=== PATIENT | female | born 1935 | race Caucasian/White ===

== ENCOUNTER 2017-08-23 22:38 | Inpatient (IN) | payer OTHER ==
[~2017-08-23] VITALS: Ht 157.5 cm; Wt 50.7 kg
[2017-08-23] MEDS ORDERED: SODIUM CHLORIDE 0.9% 1000ML 1,000 ML IV STA (22:43)
[2017-08-23] MEDS ORDERED: SODIUM BICARB 8.4% INJ 50 MEQ/50 ML SYR IV STA (22:44)
[2017-08-23] MEDS ORDERED: SODIUM BICARB 8.4% INJ 50 MEQ/50 ML SYR IV ONE (22:53)
--- NOTE | 2017-08-23 22:55 | EMERGENCY ROOM VISIT NOTE ---
History Report prepared by Rob: Remington Castro Under the Supervision of: Dr. Gail Kendrick D.O. 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 This history is limited secondary to the patient's intubation and arrest. Per EMS, the patient was at home with her daughter when she became unresponsive. As they pulled up, she went into cardiac arrest. They brought her out of the house and initiated CPR. She was asystolic, and she was given 2 rounds of Epi. She was intubated with 7.0 tube, and then her pulses came back. En route, she was PEA. They gave her 1 round of CPR and 1 of Epi and got her pulses back. The patient's daughter was unable to give EMS any more information about the patient's medical history, medications, or allergies. No family present at this time. No additional information available in EMR. 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 Review of Systems See HPI for pertinent positives & negatives. A total of 10 systems reviewed and were otherwise negative. Past Medical & Surgical Medical Problems: (1) Asystole (2) Elevated troponin (3) Hyperglycemia (4) Lactic acidosis (5) Metabolic acidosis (6) PEA (Pulseless electrical activity) Unable to obtain secondary to the patient's cardiac arrest Family History Omitted secondary to the patient's age. Social History Housing Status: lives with family Occupation Status: retired Unable to complete secondary to the patient's cardiac arrest. Current/Historical Medications Scheduled Fluoxetine (Prozac), 20 MG PO QAM Quetiapine Fumarate (Seroquel), 50 MG PO HS Simvastatin (Zocor), 10 MG PO QPM Trazodone Hcl (Trazodone), 50 MG PO HS Scheduled PRN Ibuprofen (Motrin), 600 MG PO Q8 PRN for arthritic pain Allergies Coded Allergies: Ofloxacin (Verified Allergy, Unknown, RASH, 08/23/17) Uncoded Allergies: ERYTHROMYCIN BASE (Allergy, Unknown, unknown, 08/23/17) Physical Exam Vital Signs Date Time Temp Pulse Resp B/P (MAP) Pulse Ox O2 Delivery O2 Flow Rate FiO2 08/24/17 00:31 101/50 08/24/17 00:26 91/50 08/24/17 00:21 90/46 08/24/17 00:19 87/46 08/24/17 00:17 80/ 08/24/17 00:11 91/44 08/24/17 00:08 66 20 99 Mechanical Ventilator 08/24/17 00:06 93/45 08/24/17 00:01 92/48 08/23/17 23:56 89/44 08/23/17 23:51 91/45 08/23/17 23:46 91/45 08/23/17 23:41 91/45 08/23/17 23:38 66 22 99 Mechanical Ventilator 08/23/17 23:36 89/46 08/23/17 23:33 93/48 08/23/17 23:31 90/49 08/23/17 23:26 90/41 08/23/17 23:21 69/48 08/23/17 23:11 108/52 08/23/17 23:09 Mechanical Ventilator 08/23/17 23:08 74 13 100 08/23/17 23:06 36.4 08/23/17 23:06 Mechanical Ventilator 50 08/23/17 23:01 114/75 08/23/17 23:01 50 08/23/17 23:00 83 08/23/17 22:58 70 08/23/17 22:42 36.4 85 16 159/91 99 Mechanical Ventilator 08/23/17 22:42 159/91 Physical Exam GENERAL: The patient is unresponsive and intubated. EYE EXAM: Pupils are in mid position and fixed, not dilated. OROPHARYNX: ET tube in place, no obvious secretions. NECK: supple, no nuchal rigidity, no adenopathy, non-tender LUNGS: Clear to auscultation. Normal chest wall mechanics HEART: Irregular, no murmurs, S1 normal and S2 normal ABDOMEN: abdomen soft, non-tender, normo-active bowel sounds, no masses, no rebound or guarding. SKIN: Mild modelling noted. UPPER EXTREMITIES: upper extremities are grossly normal. LOWER EXTREMITIES: No pitting edema. NEURO EXAM: GCS 3, unresponsive. Medical Decision & Procedures ER Provider Diagnostic Interpretation: Radiology results have been interpreted by the radiologist and reviewed by me. CHEST X-RAY 1 VIEW: No cardiomegaly, no effusions, ET-tube noted, increased interstitial markings bilaterally, no focal consolidations. Per me Laboratory Results Test 08/23/17 22:45 08/23/17 22:55 08/23/17 22:58 08/23/17 23:09 Platelet Estimate NORMAL Hypochromasia PRESENT Basophilic Stippling OCCASIONAL Total Creatine Kinase 63 U/L (26-192) Creatine Kinase MB 2.5 ng/ml (0.5-3.6) Creatine Kinase MB Ratio 4.0 (0-3.0) Bedside Lactic Acid Venous 7.17 mmol/L (0.90-1.70) Bedside Troponin I 0.070 ng/ml (0-0.045) Arterial Blood pH 7.25 (7.35-7.45) Arterial Blood Partial Pressure CO2 36 mmHg (35-46) Arterial Blood Partial Pressure O2 265 mm/Hg (80-95) Arterial Blood HCO3 15 mmol/L (19-24) Arterial Blood Oxygen Saturation 99.7 % (90-95) Arterial Blood Base Excess -10.9 mEq/L (-9-1.8) Arterial Blood Gas Delivery 50% Irineo Test POS (POS) Test 08/24/17 00:00 Urine Color YELLOW Urine Appearance CLOUDY (CLEAR) Urine pH 6.5 (4.5-7.5) Urine Specific Harbinger 1.013 (1.000-1.030) Urine Protein 1+ (NEG) Urine Glucose (UA) 1+ (NEG) Urine Ketones NEG (NEG) Urine Occult Blood 2+ (NEG) Urine Nitrite NEG (NEG) Urine Bilirubin NEG (NEG) Urine Urobilinogen NEG (NEG) Urine Leukocyte Esterase LARGE (NEG) Urine WBC (Auto) >30 /hpf (0-5) Urine RBC (Auto) >30 /hpf (0-4) Urine Hyaline Casts (Auto) 1-5 /lpf (0-5) Urine Epithelial Cells (Auto) 0-5 /lpf (0-5) Urine Bacteria (Auto) NEG (NEG) Urine Yeast (Auto) (NONE PRSENT) Date/Time Source Procedure Growth Status 08/24/17 00:00 Nasal MRSA DNA Surveillance Screen - Final Specimen Negative for MRSA by DNA Probe Complete 08/23/17 23:10 Stool C.difficile Toxin B Gene (PCR) - Final No C. difficile toxin B gene detected Complete Laboratory results per my review. Medications Administered Medications (Trade) Dose Ordered Sig/Srikanth Route Start Time Stop Time Status Last Admin Dose Admin Sodium Chloride 1,000 ml @ 999 mls/hr Q1H1M STAT IV 08/23/17 22:43 08/23/17 23:43 DC 08/23/17 22:55 999 MLS/HR Sodium Bicarbonate (Sodium Bicarbonate 8.4% Inj) 150 ml NOW STAT IV 08/23/17 22:44 08/23/17 22:52 DC 08/23/17 22:55 150 ML Potassium Chloride (Kcl 10 Meq / Wtr) 40 meq NOW STAT IV 08/23/17 23:00 08/23/17 23:02 DC 08/23/17 23:00 40 MEQ Sodium Bicarbonate 150 meq/Dextrose 1,150 ml @ 150 mls/hr Q7H40M IV 08/23/17 23:30 08/24/17 07:09 DC 08/23/17 23:46 150 MLS/HR Norepinephrine Bitartrate 8 mg/ Dextrose 508 ml @ 0 mls/hr Q0M STAT IV 08/24/17 00:02 08/24/17 00:04 DC 08/24/17 00:27 22.6 MLS/HR Procedure Central Venous Catheter Indication: Cardiac Arrest Catheter type: Triple Lumen Location: Right groin At this time, the risks of the procedure are less than the risks of NOT performing the procedure. A time out was taken and the correct patient and site identified. The patient was placed in the supine position and the skin was prepped in the standard fashion with chlorhexidine and full sterile drapes applied. The proper landmarks were identified with ultrasound and the needle was inserted through the skin in the standard fashion. The needle was carefully advanced into blood vessel lumen under ultrasound guidance. The guidewire was placed uneventfully. The vessel is dilated and the catheter was placed. It was sutured into position. There was good blood return from all ports. The patient tolerated the procedure well and there were no complications. Post procedure x-ray was normal. ECG Indication: other (Cardiac Arrest) Rate (beats per minute): 95 Rhythm: other (Irregular) Findings: prolonged QT, other (Prolonged QRS) Change: 2nd ECG: Sinus Rhythm at 72 with occasional PVCs. Normal axis and normal intervals. ST depressions in V3 and V4. ED Course 2241: The patient was evaluated in room B1. A complete history and physical exam was performed. 2243: Ordered Sodium Chloride 1000 ml @ 999 mls/hr IV 2244: Ordered Sodium Bicarbonate 150 ml IV 2250: I spoke with the PA-C working in our ICU at this time. They are aware of the patient's case. I will be speaking with a medicine service. 225: They are giving the patient the Sodium Bicarbonate at this time. 2300: Ordered Potassium Chloride 40 meq IV 2322: I updated the ICU PA-C at this time. 2304: The patient is now having incontinent episodes of diarrhea. I tested her stool for guaiac which was heme negative. 2330: Ordered Sodium Bicarbonate 150 meq/Dextrose 1150 ml @ 150 mls/hr IV 2341: I placed a central line in the patient at this time. Please see the procedure note for more information. 0009: Upon reevaluation, the patient is stable. I spoke with Dr. Morrow of the [facility]. The patient will be evaluated for further management. Medical Decision Differential diagnoses includes but is not limited to toxic, metabolic, infectious, traumatic, cardiac, neurologic, hematologic, psychiatric and inflammatory etiologies. Patient with return of spontaneous circulation following cardiac arrest. Patient found to have severe left light abnormality and diarrhea here. Culture sent. Patient found to have pulmonary edema, unclear if can treated to initial event versus secondary to downtime and cardiac arrest itself. Patient's troponin mildly elevated, this is likely secondary to CPR. Patient started on IV potassium replacement. Given diarrhea noted, possibility that this contributed to dehydration, acute renal failure, and hypokalemia. Patient found to be hyperglycemic, although given hypokalemia and concerning for shifting this intracellular, no insulin was given. Patient markedly acidemic initially, given 3 Amps of bicarbonate and then started on bicarbonate drip. Patient's blood pressure slowly began to trend down, central line was placed for initiation of pressors. No family present at bedside at any time. Pt went to CT on way to ICU. Head Trauma GCS Score: 3 Medication Reconcilliation Current Medication List: was personally reviewed by me Blood Pressure Screening Patient's blood pressure: Elevated blood pressure Blood pressure disposition: Elevated BP felt to be situational Consults Time Called: 2247 Consulting Physician: [facility] Returned Call: [phone] We discussed the patient's case. They are aware of the situation. Additional Consults: Time Called: 4 Consulted Physician: Dr. Odalys ARREGUING Returned Call: 000 Additional Comments: I reviewed the patient's case with him. He will evaluate the patient for further management. Impression Primary Impression: Cardiac arrest Additional Impressions: Anemia Acute renal failure Hypokalemia Diarrhea Critical Care I have personally spent 60 minutes of critical care time in the direct management of this patient. This includes bedside care, interpretation of diagnostic studies, and testing, discussion with consultants, patient, and family members, and other required patient management activities. This 60 minutes is in excess of all separately billable procedures. Scribe Attestation The scribe's documentation has been prepared under my direction and personally reviewed by me in its entirety. I confirm that the note above accurately reflects all work, treatment, procedures, and medical decision making performed by me. Departure Information Dispostion Being Evaluated By Hospitalist Referrals No Doctor, Assigned (PCP) Patient Instructions My [facility] Problem Qualifiers Additional Impressions: Anemia Anemia type: unspecified type Qualified Codes: D64.9 - Anemia, unspecified Acute renal failure Acute renal failure type: unspecified Qualified Codes: N17.9 - Acute kidney failure, unspecified Diarrhea Diarrhea type: unspecified type Qualified Codes: R19.7 - Diarrhea, unspecified
[2017-08-23] MEDS ORDERED: POTASSIUM CHLORIDE 10 MEQ / 100ML WTR IV STA (23:00)
[2017-08-23] MEDS ORDERED: FLUO20CA35 PO (23:07)
[2017-08-23] MEDS ORDERED: IBUP600T44 PO (23:07)
[2017-08-23] MEDS ORDERED: TRAZ50TA35 PO (23:09)
[2017-08-23] MEDS ORDERED: QUET1TAB32 PO (23:09)
[2017-08-23] MEDS ORDERED: SIMV10TA2 PO (23:09)
[2017-08-23 23:18] LABS: INR 1.2 (0.9-1.1)
[2017-08-23 23:25] LABS: ALBUMIN 2.1 gm/dl (3.4-5.0); ALKALINE PHOSPHATASE 56 U/L (45-117); ALT/SGPT 34 U/L (12-78); AST/SGOT 61 U/L (15-37); BLOOD UREA NITROGEN 30 mg/dl (7-18); CALCIUM 7.5 mg/dl (8.5-10.1); CARBON DIOXIDE 8 mmol/L (21-32); CKMB 2.5 ng/ml (0.5-3.6); CREATININE 2.22 mg/dl (0.60-1.20); GLUCOSE 310 mg/dl (70-99); POTASSIUM 1.9 mmol/L (3.5-5.1); SODIUM 148 mmol/L (136-145); TOTAL PROTEIN 4.7 gm/dl (6.4-8.2)
[2017-08-23] MEDS ORDERED: SODIUM BICARBONATE 8.4% INJ 150 MEQ in DEXTROSE 5% 1000ML 1,000 ML IV SCH (23:30)
[2017-08-23 23:35] LABS: PTT PATIENT 102.1 SECONDS (21.0-31.0)
[2017-08-23 23:37] LABS: PHOSPHORUS 6.8 mg/dl (2.5-4.9)
[2017-08-24] VITALS (24 sets, daily range): BP systolic 89–162; BP diastolic 45–90; PULSE 61–88; TEMP 31.3–35.1; O2SAT 91–100; Ht 157.5 cm; Wt 50.7 kg
[2017-08-24] MEDS ORDERED: NOREPINEPHRINE BIT INJ 8 MG in DEXTROSE 5% 500ML 500 ML IV STA (00:02)
[2017-08-24 00:30] LABS: HEMATOCRIT 27.4 % (37-47); HEMOGLOBIN 8.4 g/dL (12.0-16.0); MEAN CELL VOLUME 94.2 fL (80-100); MEAN CORPUSCULAR HEMOGLOBIN 28.9 pg (25-34); MEAN CORPUSCULAR HGB CONC 30.7 g/dl (32-36); MEAN PLATELET VOLUME 9.9 fL (7.4-10.4); NUCLEATED RED BLOOD CELL ABS 0.09 K/uL (0-0); PLATELET COUNT 152 K/uL (130-400); RED CELL DISTRIBUTION WIDTH CV 15.7 % (11.5-14.5); RED CELL DISTRIBUTION WIDTH SD 53.9 fL (36.4-46.3)
--- NOTE | 2017-08-24 00:47 | Critical Care Consultation ---
Critical Care Consultation Date of Consultation: Aug 24, 2017. Attending Physician: Dr. Daron Morrow Reason for Consultation: Code Arctic s/p Cardiac Arrest History of Present Illness Roxana Gray is an 82 yr old female who presented to [facility] via EMS. Per EMS report, daughter was at the home with her this evening when she reported trouble breathing. Pt became unresponsive prior to EMS arrival. ED physician stated that pt was removed from the home after being found asystolic and CPR was initiated with 2 rounds of Epi prior to ROSC. In route, pt went into PEA and received another round of Epi and CPR. She was intubated in the field with a 7.0 ET tube and cooling was initiated with 2L of cold saline. She arrived in the ED with stable vitals of 82bpm, 152/91, and 99%. Pt did not demonstrate returned of neurologic function and cooling continued. She did not respond to painful or verbal stimuli. Pt's abg in ED was 6.7/43/420/5.9. 3amps of HCO3 and a bicarb drip were stared. K was found to be 1.9 and potassium repletion was started. Pt had multiple additional lab abnormalities including PTT 102, Cr 2.22, and Lactic Acid 8.3. Pts became hypotensive after being rolled to clean loose fecal material. Dr. Kendrick inserted a right femoral triple lumen catheter and levophed was subsequently started. Dr. Kendrick and myself review a bedside cardiac ultrasound. Pt appeared to have adequate cardiac squeeze at that time. Pt was to undergo CT scan prior to transport to ICU. Daughter has not presented at the hospital at this time and no other family is present to answer questions. However, Dr. Garcia was able to make contact with daughter, Diann, who states she will come to the hospital in the morning. Diann reports that her mother was not feeling herself lately. She was with her mother who asked for food from the kitchen. When the daughter returned she was not responding. She is not sure if she was breathing. She states she has power of assistant county attorney for her mother. There is no available past medical hx after having searched for the pt in both the [facility] [employer] and [facility] records. She also takes multiple medications for sleeping issues including trazodone, Seroquel and melatonin. ROS could not be obtained secondary to pt condition and intubation. Past Medical/Surgical History PMHx: Cardiac Arrest Hypokalemia Acute Renal Failure Anemia Lactic Acidosis Elevated Troponin Hyperglycemia Metabolic Acidosis Family History Non-Contributory Social History Smoking Status: Unknown if Ever Smoked Housing Status: lives with family Occupation Status: retired Allergies Coded Allergies: Ofloxacin (Verified Allergy, Unknown, RASH, 08/23/17) Uncoded Allergies: ERYTHROMYCIN BASE (Allergy, Unknown, unknown, 08/23/17) Home Medications Scheduled Fluoxetine (Prozac), 20 MG PO QAM Quetiapine Fumarate (Seroquel), 50 MG PO HS Simvastatin (Zocor), 10 MG PO QPM Trazodone Hcl (Trazodone), 50 MG PO HS Scheduled PRN Ibuprofen (Motrin), 600 MG PO Q8 PRN for arthritic pain Current Inpatient Medications Current Inpatient Medications Medications (Trade) Dose Ordered Sig/Srikanth Route Start Time Stop Time Status Last Admin Dose Admin Sodium Bicarbonate 150 meq/Dextrose 1,150 ml @ 150 mls/hr Q7H40M IV 08/23/17 23:30 08/24/17 07:09 08/23/17 23:46 150 MLS/HR Review of Systems Could not be obtained secondary to pt intubation and condition Physical Exam Date Time Temp Pulse Resp B/P (MAP) Pulse Ox O2 Delivery O2 Flow Rate FiO2 08/24/17 00:36 112/56 08/24/17 00:31 101/50 08/24/17 00:26 91/50 08/24/17 00:21 90/46 08/24/17 00:19 87/46 08/24/17 00:17 80/ 08/24/17 00:11 91/44 08/24/17 00:08 66 20 99 Mechanical Ventilator 08/24/17 00:06 93/45 08/24/17 00:01 92/48 08/23/17 23:56 89/44 08/23/17 23:51 91/45 08/23/17 23:46 91/45 08/23/17 23:41 91/45 08/23/17 23:38 66 22 99 Mechanical Ventilator 08/23/17 23:36 89/46 08/23/17 23:33 93/48 08/23/17 23:31 90/49 08/23/17 23:26 90/41 08/23/17 23:21 69/48 08/23/17 23:11 108/52 08/23/17 23:09 Mechanical Ventilator 08/23/17 23:08 74 13 100 08/23/17 23:06 36.4 08/23/17 23:06 Mechanical Ventilator 50 08/23/17 23:01 114/75 08/23/17 23:01 50 08/23/17 23:00 83 08/23/17 22:58 70 08/23/17 22:42 36.4 85 16 159/91 99 Mechanical Ventilator 08/23/17 22:42 159/91 Vital Signs - as noted Laboratory Data - as noted Physical Exam: General - Unresponsive Eyes - Pupils pinpoint, minimally responsive, No icterus, gaze conjugate ENT - ET tube in place, 7.0 [] at the lip Neck - Supple, trachea midline, no masses or lymphadenopathy, no JVD or bruits Lungs - No paradoxical chest wall movement, coarse to auscultation bilaterally, no wheezes, rales, or rhonchi Heart - Reg rate and rhythm, No murmur, rubs, clicks, or gallops appreciated Abdomen - BS absent, no bruits noted, dullness to percussion, soft, nondistended , no organomegaly Extremities - No edema, pedal pulses intact Neuro - [place] Coma Scale 3 Proprioception intact, neg pronator drift Strength: Could not assess Reflexes: None noted CN:Pupils pinpoint, minimally responsive, no facial asymmetry, No unilateral neuro changes noted Laboratory Results Last 24 Hours Test 08/23/17 22:43 08/23/17 22:45 08/23/17 22:47 08/23/17 22:55 White Blood Count 19.60 K/uL Red Blood Count 2.91 M/uL Hemoglobin 8.4 g/dL Hematocrit 27.4 % Mean Corpuscular Volume 94.2 fL Mean Corpuscular Hemoglobin 28.9 pg Mean Corpuscular Hemoglobin Concent 30.7 g/dl Platelet Count 152 K/uL Mean Platelet Volume 9.9 fL RDW Standard Deviation 53.9 fL RDW Coefficient of Variation 15.7 % Nucleated RBC Absolute Count (auto) 0.09 K/uL Nucleated Red Blood Cells % 0.4 % Platelet Estimate NORMAL Hypochromasia PRESENT Basophilic Stippling OCCASIONAL Echinocytes 1+ Prothrombin Time 12.9 SECONDS Prothromb Time International Ratio 1.2 Activated Partial Thromboplast Time 102.1 SECONDS Partial Thromboplastin Ratio 3.9 Sodium Level 148 mmol/L Potassium Level 1.9 mmol/L Chloride Level 124 mmol/L Carbon Dioxide Level 8 mmol/L Anion Gap 17.0 mmol/L Blood Urea Nitrogen 30 mg/dl Creatinine 2.22 mg/dl Estimated GFR () 23.5 Estimated GFR (Non- 20.3 BUN/Creatinine Ratio 13.3 Random Glucose 310 mg/dl Calcium Level 7.5 mg/dl Total Bilirubin 0.1 mg/dl Direct Bilirubin < 0.1 mg/dl Aspartate Amino Transf (AST/SGOT) 61 U/L Alanine Aminotransferase (ALT/SGPT) 34 U/L Alkaline Phosphatase 56 U/L Total Creatine Kinase 63 U/L Creatine Kinase MB 2.5 ng/ml Creatine Kinase MB Ratio 4.0 Total Protein 4.7 gm/dl Albumin 2.1 gm/dl Beta-Hydroxybutyric Acid 1.34 mg/dL Bedside Blood Gas pH (LAB) 6.74 Bedside Blood Gas pCO2 (LAB) 43 mmHg Bedside Blood Gas pO2 (LAB) > 420 mmHg Bedside Blood Gas HCO3 (LAB) 6 meq/L Bedside Blood Gas Total CO2 7 mEq/l Bedside Blood Gas Base Excess (LAB) -30.0 meq/L Bedside Blood Gas O2 Saturation 100.0 % Bedside Lactic Acid Venous 7.17 mmol/L Test 08/23/17 22:58 08/23/17 23:09 Bedside Troponin I 0.070 ng/ml Arterial Blood pH 7.25 Arterial Blood Partial Pressure CO2 36 mmHg Arterial Blood Partial Pressure O2 265 mm/Hg Arterial Blood HCO3 15 mmol/L Arterial Blood Oxygen Saturation 99.7 % Arterial Blood Base Excess -10.9 mEq/L Arterial Blood Gas Delivery 50% Irineo Test POS Lactic Acid Level 8.3 mmol/L Phosphorus Level 6.8 mg/dl Magnesium Level 2.2 mg/dl Diagnostic Results CXR at arrival in ED Demonstrates early pulmonary congestion. No effusion or pneumo noted. ET tubes appears 5-6 cm from nargis. No consolidation noted Assessment & Plan (1) Metabolic acidosis (2) Elevated troponin (3) PEA (Pulseless electrical activity) (4) Asystole (5) Hyperglycemia (6) Lactic acidosis (7) Cardiac arrest (8) Hypokalemia (9) Acute renal failure (10) Anemia Reason Critically Ill: Patient is an 82-year-old female who is transferred to the ICU s/p cardiac arrest with ROSC without normal neurologic function. PLAN: CV: Cardiac Arrest * Asystole -> ROSC -> PEA -> ROSC ( Epi x 3) * Targeted Temperature Management initiated: Goal Temp 32-34*C * Follow Hospital Protocol * Trend Cardiac Enzymes; Serial EKGs * Prolonged QTc 503; monitor * Cardiac Consult pending * ECHO ordered * Hypotension: Continue Levophed Goal MAP at least 60 Neuro: * Spoke with Dr. 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 Old insult noted in left occipital region. No hemorrhage, midline shift, or hydrocephalus noted. * Neuro Consulted * Unresponsive at this time; GCS 3 Resp: * Abg q4h * Intubated 7.0 ET 18 at the lip, advance to 21 and repeat CXR * Reviewed repeat CXR: ET Tube at 21cm with improved placement * Vent Settings: 12/500/5/30% * Breathing above the vent rate 16 and Vol of 550-650. Fluids/Renal: * Acute Renal Failure * Metabolic Acidosis * Continue Bicarb drip in D5W @ 100mL/hr * PRP q4hrs * Monitor UOP * Replete Electrolytes: Goal K 3.6 to 4, Currently 1.9. Repeat labs q 4h * CT Abd: * L. Staghorn calculus without significant hydronephrosis. Numerous non- obstructing calyceal calculi of R kidney. ID: * No source for infection; Procalcitonin Pending * Lactic Acidosis likely from prolonged downtime * Trend Lactic Acid * WBC elevated: Continue to monitor GI/Nutrition: * Albumin 2.1 * NPO now * OG tube in place to suction * Incontinent of loose stool, Guaiac Neg in ED * ED placed fecal management system * GI Prophylaxis: Protonix BID ordered * CT Abd: Fluid within nondistended loops of small bowel and within stomach without bowel wall thickening or surrounding inflammation. Heme: * Anemia, Mild bleeding at IV & Femoral Line site otherwise no gross sign of bleeding * H&H: 8.4/27.4; plts 152 * PT/INR 12.9/1.2; aPTT 102.1 * Trend q4h per protocol * DVT Prophylaxis: SCDs ordered, elevated Coags Endocrine: * Accu-Checks per protocol; however despite meeting protocol requirements for insulin infusion will hold due to severe hypokalemia. * No DM2 diagnosis known, will order A1C * TSH pending * Random Cortisol Pending CCT: 120 Minutes; This time is exclusive of all separately billable procedures. Thank you for involving us in the care of this patient. Please refer to Dr. Isaiah Bar's addendum for further recommendations. Addendum: I have monitored her situation today. Her neurological status is devastated. Increasing difficultly with respiratory status consistent with massive aspiration/ARDS. Continued myoclonic activity consistent with anoxic brain injury. Her chance of any meaningful survival is zero. I spoke with her daughter regarding the grave prognosis. Decision to shift the goal of care to comfort made. Will removed from ventilator and provide appropriate comfort measures. Staff actively providing support to the daughter. Pastoral staff involved. Isaiah Bar MD Problem Qualifiers (1) Acute renal failure: Acute renal failure type: unspecified Qualified Codes: N17.9 - Acute kidney failure, unspecified (2) Anemia: Anemia type: unspecified type Qualified Codes: D64.9 - Anemia, unspecified
[2017-08-24] MEDS ORDERED: MAGNESIUM SULFATE 1 GM IV STA (01:09)
[2017-08-24] MEDS ORDERED: D5W IV STA (01:09)
--- NOTE | 2017-08-24 01:30 | NUR ---
Advanced OG tube to 65cms at the lip after assessment. Aspirated small amount of clear stomach content with brown solid flecks.
[2017-08-24] MEDS ORDERED: NOREPINEPHRINE BIT INJ 8 MG in DEXTROSE 5% 500ML 500 ML IV PRN (01:46)
[2017-08-24] MEDS ORDERED: ARTIFICIAL TEARS OP OINT 3.5 GM TUBE OPB PRN (02:00)
--- NOTE | 2017-08-24 02:00 | NUR ---
Patient temperature noted to be remaining below goal range. Two warm blankets applied at this time, cooling blanket is currently set at 34 degrees celsius. Continuing to monitor, Sobeida joseph.
--- NOTE | 2017-08-24 02:00 | NUR ---
Patient arrived to ICU 106 via litter, on monitor, accompanied by three ED RN's and Respiratory Therapist. Patient hooked up to bedside monitor, vent, and hypothermia blanket. Gown and linens changed due to incontinence. Skin, saba, and oral care completed. All IV's continue to infuse from ED. Admission assessment completed. Unable to obtain PMH or any pertinent information on patient due to patient condition and no family members being present. HIPPA pass code and Fall collaboration papers will need to be filled out and signed by family member when family arrives. Meagan Cho RN and Collins Barajas RN will continue with patient care. Bed in low position. 4 side rails up. Call crum within reach. Continue to monitor patient.
[2017-08-24 02:18] LABS: CALCIUM 7.4 mg/dl (8.5-10.1); CREATININE 2.38 mg/dl (0.60-1.20); POTASSIUM 1.6 mmol/L (3.5-5.1)
--- NOTE | 2017-08-24 02:30 | NUR ---
Noted temperature remains below set point with verification via both rectal probes. Three additional warm blankets applied. Sobeida Alvarez aware. Temperature does start to trend up at this time.
[2017-08-24] MEDS: POTASSIUM CHLR 20 MEQ / WTR 20 MEQ in PREMIXED WATER 100 ML IV SCH ×6 (02:54→08:34)
--- NOTE | 2017-08-24 03:00 | NUR ---
Patient continues to remain below temperature goal range. Discussed addition of bear hugger to increase temp with kevyn Simco. Will apply if temp continues to remain below goal range.
--- NOTE | 2017-08-24 03:15 | NUR ---
Sobeida COLÓN notified that patient temp remains below goal range despite multiple warm blanket applications and minimizing skin exposure. OK with application of bear hugger at this time. Applied and set at moderate temp range. Current temp noted to be 31.3 celsius with both rectal probes. Continuous temp monitoring in place.
--- NOTE | 2017-08-24 04:10 | NUR ---
Sobeida Alvarez aware of ABG results, no new orders at this time. Aware that patient is now in goal range for temperature.
--- NOTE | 2017-08-24 04:25 | NUR ---
[facility] notified. Spoke with Tiffany Orellana. A [facility] staff member is expected this morning.
--- NOTE | 2017-08-24 04:30 | NUR ---
Patient reassessed at this time, see interventions for details. Vital signs remain stable. Of note, patient does demonstrate a cough reflex and does open eyes with suctioning, no other movements can be elicited. No return of any other reflexes noted at this time. Continues to breath above the vent ranging 16-18, suctioning thick brown/yellow sputum from ET tube, Sobeida Alvarez aware. Rebollar patent draining light yellow urine. R femoral III lumen patent with blood return to all lumens, currently infusing potassium supplementation, BiCarb gtt at 150mLs/hr, and Levophed which has been titrated to 0.08 mcs/kg/min. Peripheral 20ga to R AC and 18ga to R wrist remain patent with excellent blood return. Dignishield in place and unobstructed, draining brown liquid stool. Remains SR on continuous cardiac monitoring with noted continuing decrease in ectopy.
[2017-08-24] MEDS ORDERED: POTASSIUM CHLORIDE 20 MEQ/15 ML UDC PO STA ×2 (05:02→12:00)
[2017-08-24] MEDS ORDERED: INSULIN IV INFUSION PROTOCOL STA (05:04)
--- NOTE | 2017-08-24 05:04 | NUR ---
Sobeida Alvarez aware of ISTAT glucose of 495. To place orders for PO potassium and IV insulin gtt to be started. Will repeat ISTAT potassium at this time.
[2017-08-24] MEDS ORDERED: INSULIN PROTOCOL GOAL RANGE ONE (05:15)
[2017-08-24] MEDS ORDERED: SEVERE STRESS LEVEL ONE (05:15)
[2017-08-24] MEDS ORDERED: INSULIN HUMAN REGULAR PER UNIT 2 UNITS in SYRINGE 1.98 ML IV SCH (05:30)
[2017-08-24] MEDS ORDERED: INSULIN REGULAR 250 UNITS in SODIUM CHLORIDE 0.9% 250ML 250 ML IV SCH (05:30)
--- NOTE | 2017-08-24 05:36 | NUR ---
A- ISTAT K+ <2.0 - KELI MARQUEZ AWARE AND INSULIN GTT ON HOLD AT THIS TIME. - K+ GIVEN VIA OGT ORDERED.
--- NOTE | 2017-08-24 06:17 | NUR ---
Sobeida Alvarez aware final IV K has infused, placed orders for additional replacement of potassium. Dignishield deflated, repositioned and reinflated for leaking around the tube. Moderate amount of liquid stool noted to drain into tube after repositioning. Leaking ceased at this time, perianal care washed and barrier cream reapplied.
--- NOTE | 2017-08-24 06:38 | DIAGNOSTIC IMAGING REPORT ---
HEAD WITHOUT CONTRAST (CT) CLINICAL HISTORY: 82 years-old Female with cardiac arrest. Acute cardiac arrest. TECHNIQUE: Multiple axial CT images of the head were obtained without contrast. A dose lowering technique was utilized adhering to the principles of ALARA. CT DOSE: 1107.70 mGy.cm COMPARISON: None. FINDINGS: There is a focal area of decreased attenuation within the mid and inferior right cerebellar hemisphere, 3.4 x 2.5 cm seen on image 7 of series 2 suggesting a focal infarction. 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 No midline shift or abnormal extra-axial collections. Mild to moderate background cerebral atrophy with ex vacuo ventriculomegaly. Senescent calcifications of the lentiform nuclei. Background chronic microvascular ischemic changes. There are vascular calcifications at the level of the skull base. The calvarium is intact. The paranasal sinuses, mastoid air cells, and middle ear cavities are clear. Mild rightward deviation and spurring of nasal septum. Left gayla bullosa. IMPRESSION: 1. Focal area of decreased attenuation involving the mid and inferior right cerebellar hemisphere, 3.4 x 2.5 cm suggests acute to subacute infarction. Further evaluation with MRI may be considered. No midline shift or hemorrhage. 2. 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 3. Atrophy with chronic microvascular ischemic changes. The above report was generated using voice recognition software. It may contain grammatical, syntax or spelling errors. Electronically signed by: River Scott M.D. 08/24/2017 6:36 AM Dictated Date/Time: 08/24/2017 6:33 AM
[2017-08-24 06:58] LABS: HEMOGLOBIN A1C 4.8 % (4.5-5.6)
--- NOTE | 2017-08-24 07:01 | DIAGNOSTIC IMAGING REPORT ---
(CHEST) THORAX WITHOUT CT DOSE: HISTORY: Chest pain cardiac arrest TECHNIQUE: Multiaxial CT images of the chest were performed without contrast. A dose lowering technique was utilized adhering to the principles of ALARA. COMPARISON: None. FINDINGS: Prominence of the pulmonary vasculature. Trace bibasilar pleural effusions. Bibasilar atelectatic change. Prominent perihilar vasculature suggesting a component of congestive failure. A component of pulmonary arterial hypertension may be present. There is a nasogastric tube within the stomach. There is an endotracheal tube several centimeters superior to the nargis. There are several nondisplaced cortical fractures anterolateral ribs bilaterally presumably secondary to resuscitation efforts. No evidence pneumothorax. IMPRESSION: 1. Bibasilar atelectatic change. 2. Trace pleural fluid both lung bases. 3. Pulmonary arterial hypertension with components of mild congestive failure. 4. Tubes and lines in good position as noted. 5. Several bilateral nondisplaced cortical rib fractures anterolaterally with no evidence pneumothorax. The above report was generated using voice recognition software. It may contain grammatical, syntax or spelling errors. Electronically signed by: Saw Watts M.D. 08/24/2017 7:00 AM Dictated Date/Time: 08/24/2017 6:53 AM
--- NOTE | 2017-08-24 07:02 | DIAGNOSTIC IMAGING REPORT ---
CHEST ONE VIEW PORTABLE HISTORY: 82 years-old Female Intubated, Tube advanced acute respiratory failure with intubation. Status post cardiac arrest COMPARISON: Chest radiograph 08/23/2017, chest CT 08/24/2017 TECHNIQUE: Portable semiupright AP view of the chest FINDINGS: Endotracheal tube overlies the midline terminating 4.8 cm superior to the nargis. Enteric tube courses below the diaphragm with distal tip projected superiorly near the gastric fundus. Cardiac silhouette is within normal limits. Pulmonary vascular congestion is noted with interstitial coarsening. Mixed interstitial and alveolar opacities are also noted within the upper and lower lobes. No pneumothorax or large pleural effusion. Bones appear grossly intact. IMPRESSION: 1. Endotracheal and enteric tube placement as above. 2. Mixed interstitial and alveolar opacities within the upper lobes and lung bases, better evaluated on comparison chest CT of same day are nonspecific findings and may reflect aspiration pneumonitis or pneumonia. The above report was generated using voice recognition software. It may contain grammatical, syntax or spelling errors. Electronically signed by: River Scott M.D. 08/24/2017 7:00 AM Dictated Date/Time: 08/24/2017 6:55 AM
--- NOTE | 2017-08-24 07:05 | History and Physical ---
History & Physical Date & Time of Service: Aug at 00:30 Chief Complaint: Acute Renal Fail., Anemia, Cardiac Arrest, Hypokal Primary Care Physician: Steven Bradford History of Present Illness Source: family (daughter - Diann [phone]), hospital records Mrs Gray is an 82 year old female who presents to the ER s/p cardiac arrest. She was found unresponsive by her daughter who called 911. EMS brought her out of the house (due to hoarding) and initiated CPR. Asystolic, 2 rounds of CPR and Epinephrine - return of pulses. She was intubated with 7.0 tube. PEA arrest on route - 1 round of CPR and Epi - return of pulses. When seen in the ER she was intubated and unresponsive to voice or pain. On ventilator but breathing above vent rate at 18. I called her daughter Diann ([phone]) who lives with the patient. She reports her mother was feeling generally unwell, not quite her normal self for the past few days with a "head cold". She has recently been complaining of worsening arthritis pain and taking ibuprofen 800 mg BID. Her mother was lying on the bed watching TV when she was feeling thirsty and asked her daughter to get her a decaf coffee and sandwich. Her daughter returned after around 5 minutes and found the patient unresponsive on the bed. She thinks her mother was shallow breathing at this time but is unsure. She was unable to wake her up so called 911. She denies the patient was complaining of any chest pain, shortness of breath, dizziness before her unresponsive episode. She is under Dr Carrasco. PMHx from daughter as below. She reports the patient is not on fluoxetine for the past 2 months as she has been feeling better. She denies the Past Medical/Surgical History Hypertension - Lisinopril 5mg BID Hyperlipemia - Simvastatin Glaucoma - Acetazolamide GERD - Omeprazole Arthritis - Ibuprofen Insomnia - seroquel, melatonin Social History Smoking Status: Never Smoker Alcohol Use: none Drug Use: none Marital Status: single Housing status: lives with family (daughter - Diann) Occupational Status: retired Allergies Coded Allergies: Ofloxacin (Verified Allergy, Unknown, RASH, 08/23/17) Uncoded Allergies: ERYTHROMYCIN BASE (Allergy, Unknown, unknown, 08/23/17) Home Medications Scheduled Fluoxetine (Prozac), 20 MG PO QAM Quetiapine Fumarate (Seroquel), 50 MG PO HS Simvastatin (Zocor), 10 MG PO QPM Trazodone Hcl (Trazodone), 50 MG PO HS Scheduled PRN Ibuprofen (Motrin), 600 MG PO Q8 PRN for arthritic pain Review of Systems Unable to obtain secondary to intubation and altered mental consciousness Physical Exam Vital Signs Date Time Temp Pulse Resp B/P (MAP) Pulse Ox O2 Delivery O2 Flow Rate FiO2 08/24/17 06:00 33.6 72 19 115/65 100 08/24/17 06:00 33.6 72 19 100 08/24/17 06:00 33.6 72 19 08/24/17 05:20 30 08/24/17 05:00 33.0 71 19 117/65 (82) 100 Mechanical Ventilator 30 08/24/17 05:00 33.0 71 19 117/65 (84) 100 08/24/17 05:00 33.0 71 19 08/24/17 04:00 31.9 68 17 100 08/24/17 04:00 31.9 68 17 117/57 (77) 100 Mechanical Ventilator 30 08/24/17 04:00 31.9 68 17 117/57 (77) 100 Mechanical Ventilator 30 08/24/17 04:00 100 Mechanical Ventilator 30 08/24/17 04:00 30 08/24/17 03:11 31.4 63 16 121/58 (69) 100 08/24/17 03:01 31.3 64 16 125/59 (76) 100 08/24/17 03:00 31.3 62 16 100 08/24/17 03:00 31.3 62 16 125/59 (81) 100 Mechanical Ventilator 30 08/24/17 02:41 31.3 64 17 125/57 (87) 100 08/24/17 02:39 31.3 63 17 124/62 (87) 100 08/24/17 02:21 31.4 61 17 110/56 (89) 100 08/24/17 02:01 31.6 61 18 89/57 (83) 100 08/24/17 02:00 31.6 67 19 100 08/24/17 02:00 31.6 67 19 89/57 (68) 100 Mechanical Ventilator 40 08/24/17 01:59 50 08/24/17 01:48 115/54 08/24/17 01:46 Mechanical Ventilator 08/24/17 01:11 18 08/24/17 01:06 107/55 08/24/17 01:01 107/57 08/24/17 00:56 111/53 08/24/17 00:51 109/55 08/24/17 00:46 110/53 08/24/17 00:41 63 15 116/53 100 Mechanical Ventilator 08/24/17 00:36 112/56 08/24/17 00:31 101/50 08/24/17 00:26 91/50 08/24/17 00:21 90/46 08/24/17 00:19 87/46 08/24/17 00:17 80/ 08/24/17 00:11 91/44 08/24/17 00:08 66 20 99 Mechanical Ventilator 08/24/17 00:06 93/45 08/24/17 00:01 92/48 08/23/17 23:56 89/44 08/23/17 23:51 91/45 08/23/17 23:46 91/45 08/23/17 23:41 91/45 08/23/17 23:38 66 22 99 Mechanical Ventilator 08/23/17 23:36 89/46 08/23/17 23:33 93/48 08/23/17 23:31 90/49 08/23/17 23:26 90/41 08/23/17 23:21 69/48 08/23/17 23:11 108/52 08/23/17 23:09 Mechanical Ventilator 08/23/17 23:08 74 13 100 08/23/17 23:06 36.4 08/23/17 23:06 Mechanical Ventilator 50 08/23/17 23:01 114/75 08/23/17 23:01 50 08/23/17 23:00 83 08/23/17 22:58 70 08/23/17 22:42 36.4 85 16 159/91 99 Mechanical Ventilator 08/23/17 22:42 159/91 General Appearance: WD/WN, no apparent distress Head: normocephalic, atraumatic Eyes: normal inspection ENT: + pertinent finding (OG tube and ET tube in place and secure) Neck: supple, no JVD Respiratory/Chest: + crackles (diffuse but with good air entry b/l), + pertinent finding (intubated, 0.5L PEEP5, FiO2 50%, Sats 100%) Cardiovascular: regular rate, rhythm, no edema, no murmur, normal peripheral pulses Abdomen/GI: normal bowel sounds, non tender, soft Extremities/Musculoskelatal: no calf tenderness, normal capillary refill (in finger and centrally), no pedal edema, + slow capillary refill (in toes 4 seconds) Neurologic/Psych: + pertinent finding (few movements of eyes and mouth, none intentional, GCS3) Skin: normal color, warm/dry, no rash Diagnostics Laboratory Results Results Past 24 Hours Test 08/23/17 22:45 08/23/17 22:47 08/23/17 22:55 08/23/17 22:58 Range/Units White Blood Count 19.60 4.8-10.8 K/uL Red Blood Count 2.91 4.2-5.4 M/uL Hemoglobin 8.4 12.0-16.0 g/dL Hematocrit 27.4 37-47 % Mean Corpuscular Volume 94.2 80-100 fL Mean Corpuscular Hemoglobin 28.9 25-34 pg Mean Corpuscular Hemoglobin Concent 30.7 32-36 g/dl Platelet Count 152 130-400 K/uL Mean Platelet Volume 9.9 7.4-10.4 fL RDW Standard Deviation 53.9 36.4-46.3 fL RDW Coefficient of Variation 15.7 11.5-14.5 % Nucleated RBC Absolute Count (auto) 0.09 0-0 K/uL Nucleated Red Blood Cells % 0.4 % Platelet Estimate NORMAL Hypochromasia PRESENT Basophilic Stippling OCCASIONAL Echinocytes 1+ Prothrombin Time 12.9 9.0-12.0 SECONDS Prothromb Time International Ratio 1.2 0.9-1.1 Activated Partial Thromboplast Time 102.1 21.0-31.0 SECONDS Partial Thromboplastin Ratio 3.9 Sodium Level 148 136-145 mmol/L Potassium Level 1.9 3.5-5.1 mmol/L Chloride Level 124 98-107 mmol/L Carbon Dioxide Level 8 21-32 mmol/L Anion Gap 17.0 3-11 mmol/L Blood Urea Nitrogen 30 7-18 mg/dl Creatinine 2.22 0.60-1.20 mg/dl Estimated GFR () 23.5 Estimated GFR (Non- 20.3 BUN/Creatinine Ratio 13.3 10-20 Random Glucose 310 70-99 mg/dl Calcium Level 7.5 8.5-10.1 mg/dl Total Bilirubin 0.1 0.2-1 mg/dl Direct Bilirubin < 0.1 0-0.2 mg/dl Aspartate Amino Transf (AST/SGOT) 61 15-37 U/L Alanine Aminotransferase (ALT/SGPT) 34 12-78 U/L Alkaline Phosphatase 56 45-117 U/L Total Creatine Kinase 63 26-192 U/L Creatine Kinase MB 2.5 0.5-3.6 ng/ml Creatine Kinase MB Ratio 4.0 0-3.0 Total Protein 4.7 6.4-8.2 gm/dl Albumin 2.1 3.4-5.0 gm/dl Beta-Hydroxybutyric Acid 1.34 0.2-2.81 mg/dL Bedside Blood Gas pH (LAB) 6.74 7.35-7.45 Bedside Blood Gas pCO2 (LAB) 43 35-46 mmHg Bedside Blood Gas pO2 (LAB) > 420 80-95 mmHg Bedside Blood Gas HCO3 (LAB) 6 19-24 meq/L Bedside Blood Gas Total CO2 7 24-31 mEq/l Bedside Blood Gas Base Excess (LAB) -30.0 -9-1.8 meq/L Bedside Blood Gas O2 Saturation 100.0 90-95 % Bedside Lactic Acid Venous 7.17 0.90-1.70 mmol/L Bedside Troponin I 0.070 0-0.045 ng/ml Test 08/23/17 23:09 08/24/17 00:00 08/24/17 01:15 08/24/17 02:37 Range/Units Arterial Blood pH 7.25 7.35-7.45 Arterial Blood Partial Pressure CO2 36 35-46 mmHg Arterial Blood Partial Pressure O2 265 80-95 mm/Hg Arterial Blood HCO3 15 19-24 mmol/L Arterial Blood Oxygen Saturation 99.7 90-95 % Arterial Blood Base Excess -10.9 -9-1.8 mEq/L Arterial Blood Gas Delivery 50% Irineo Test POS Pass Lactic Acid Level 8.3 3.9 0.4-2.0 mmol/L Phosphorus Level 6.8 2.5-4.9 mg/dl Magnesium Level 2.2 1.8-2.4 mg/dl Urine Color YELLOW Urine Appearance CLOUDY CLEAR Urine pH 6.5 4.5-7.5 Urine Specific [place] 1.013 1.000-1.030 Urine Protein 1+ NEG Urine Glucose (UA) 1+ NEG Urine Ketones NEG NEG Urine Occult Blood 2+ NEG Urine Nitrite NEG NEG Urine Bilirubin NEG NEG Urine Urobilinogen NEG NEG Urine Leukocyte Esterase LARGE NEG Urine WBC (Auto) >30 0-5 /hpf Urine RBC (Auto) >30 0-4 /hpf Urine Hyaline Casts (Auto) 1-5 0-5 /lpf Urine Epithelial Cells (Auto) 0-5 0-5 /lpf Urine Bacteria (Auto) NEG NEG Urine Yeast (Auto) NONE PRSENT Sodium Level 148 136-145 mmol/L Potassium Level 1.6 3.5-5.1 mmol/L Chloride Level 121 98-107 mmol/L Carbon Dioxide Level 13 21-32 mmol/L Anion Gap 14.0 3-11 mmol/L Blood Urea Nitrogen 29 7-18 mg/dl Creatinine 2.38 0.60-1.20 mg/dl Est Creatinine Clear Calc Drug Dose 16.1 ml/min Estimated GFR () 21.6 Estimated GFR (Non- 18.6 BUN/Creatinine Ratio 12.3 10-20 Random Glucose 314 70-99 mg/dl Calcium Level 7.4 8.5-10.1 mg/dl Beta-Hydroxybutyric Acid 2.21 0.2-2.81 mg/dL Ethyl Alcohol mg/dL < 3.0 0-3 mg/dl Blood Gas Sample Site L Radial Bedside Blood Gas pH (LAB) 7.22 7.35-7.45 Bedside Blood Gas pCO2 (LAB) 26 35-46 mmHg Bedside Blood Gas pO2 (LAB) 138 80-95 mmHg Bedside Blood Gas HCO3 (LAB) 12 19-24 meq/L Bedside Blood Gas Total CO2 13 24-31 mEq/l Bedside Blood Gas Base Excess (LAB) -17.0 -9-1.8 meq/L Bedside Blood Gas O2 Saturation 99.0 90-95 % Oxygen Delivery Device Ventilator Bedside Oxygen Rate (breaths/min) 12 Blood Gas Minute Ventilation 6 Bedside FiO2 40 % Blood Gas Tidal Volume 500 Blood Gas PEEP 5 Test 08/24/17 02:41 08/24/17 02:46 08/24/17 04:05 Range/Units Estimated Average Glucose 91 mg/dl Hemoglobin A1c 4.8 4.5-5.6 % Osmolality 322 280-300 mOsm/kg Ionized Calcium 1.17 1.12-1.32 mmol/l Thyroid Stimulating Hormone (TSH) 4.870 0.300-4.500 uIu/ml Free Thyroxine 0.85 0.80-1.60 ng/dl Random Cortisol 48.49 mcg/dl Urine Opiates Screen NEG NEG Urine Methadone, Qualitative NEG NEG Urine Barbiturates NEG NEG Urine Phencyclidine (PCP) Level NEG NEG Ur Amphetamine/Methamphetamine NEG NEG MDMA (Ecstasy) Screen NEG NEG Urine Benzodiazepines Screen NEG NEG Urine Cocaine Metabolite NEG NEG Urine Marijuana (THC) NEG NEG Blood Gas Sample Site L Radial Bedside Blood Gas pH (LAB) 7.24 7.35-7.45 Bedside Blood Gas pCO2 (LAB) 25 35-46 mmHg Bedside Blood Gas pO2 (LAB) 88 80-95 mmHg Bedside Blood Gas HCO3 (LAB) 11 19-24 meq/L Bedside Blood Gas Total CO2 12 24-31 mEq/l Bedside Blood Gas Base Excess (LAB) -17.0 -9-1.8 meq/L Bedside Blood Gas O2 Saturation 97.0 90-95 % Irineo Test Pass Oxygen Delivery Device Ventilator Bedside Oxygen Rate (breaths/min) 12 Blood Gas Minute Ventilation 6 Bedside FiO2 30 % Blood Gas Tidal Volume 500 Blood Gas PEEP 5 Microbiology Results 08/24/17 Blood Culture, Received Pending 08/23/17 Blood Culture, Received Pending 08/24/17 MRSA DNA Surveillance Screen - Final, Complete Specimen Negative for MRSA by DNA Probe 08/23/17 C.difficile Toxin B Gene (PCR) - Final, Complete No C. difficile toxin B gene detected 08/23/17 Shiga Toxin Test, Received Pending 08/23/17 Stool Culture, Received Pending Diagnostic Radiology CHEST ONE VIEW PORTABLE CLINICAL HISTORY: CODE BLUE dyspnea COMPARISON STUDY: No previous studies for comparison. FINDINGS: Endotracheal tube positioned 4 cm with the nargis. Findings of a component of congestive failure. Diaphragms are smooth. No evidence pneumothorax. IMPRESSION: Endotracheal tube 4 cm both nargis. Developing congestive failure. The above report was generated using voice recognition software. It may contain grammatical, syntax or spelling errors. Electronically signed by: Saw Watts M.D. 08/24/2017 7:55 AM Dictated Date/Time: 08/24/2017 7:23 AM HEAD WITHOUT CONTRAST (CT) CLINICAL HISTORY: 82 years-old Female with cardiac arrest. Acute cardiac arrest. TECHNIQUE: Multiple axial CT images of the head were obtained without contrast. A dose lowering technique was utilized adhering to the principles of ALARA. CT DOSE: 1107.70 mGy.cm COMPARISON: None. FINDINGS: There is a focal area of decreased attenuation within the mid and inferior right cerebellar hemisphere, 3.4 x 2.5 cm seen on image 7 of series 2 suggesting a focal infarction. 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 No midline shift or abnormal extra-axial collections. Mild to moderate background cerebral atrophy with ex vacuo ventriculomegaly. Senescent calcifications of the lentiform nuclei. Background chronic microvascular ischemic changes. There are vascular calcifications at the level of the skull base. The calvarium is intact. The paranasal sinuses, mastoid air cells, and middle ear cavities are clear. Mild rightward deviation and spurring of nasal septum. Left gayla bullosa. IMPRESSION: 1. Focal area of decreased attenuation involving the mid and inferior right cerebellar hemisphere, 3.4 x 2.5 cm suggests acute to subacute infarction. Further evaluation with MRI may be considered. No midline shift or hemorrhage. 2. 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 3. Atrophy with chronic microvascular ischemic changes. The above report was generated using voice recognition software. It may contain grammatical, syntax or spelling errors. Electronically signed by: River Scott M.D. 08/24/2017 6:36 AM Dictated Date/Time: 08/24/2017 6:33 AM (CHEST) THORAX WITHOUT CT DOSE: HISTORY: Chest pain cardiac arrest TECHNIQUE: Multiaxial CT images of the chest were performed without contrast. A dose lowering technique was utilized adhering to the principles of ALARA. COMPARISON: None. FINDINGS: Prominence of the pulmonary vasculature. Trace bibasilar pleural effusions. Bibasilar atelectatic change. Prominent perihilar vasculature suggesting a component of congestive failure. A component of pulmonary arterial hypertension may be present. There is a nasogastric tube within the stomach. There is an endotracheal tube several centimeters superior to the nargis. There are several nondisplaced cortical fractures anterolateral ribs bilaterally presumably secondary to resuscitation efforts. No evidence pneumothorax. IMPRESSION: 1. Bibasilar atelectatic change. 2. Trace pleural fluid both lung bases. 3. Pulmonary arterial hypertension with components of mild congestive failure. 4. Tubes and lines in good position as noted. 5. Several bilateral nondisplaced cortical rib fractures anterolaterally with no evidence pneumothorax. The above report was generated using voice recognition software. It may contain grammatical, syntax or spelling errors. Electronically signed by: Saw Watts M.D. 08/24/2017 7:00 AM Dictated Date/Time: 08/24/2017 6:53 AM ABDOMEN AND PELVIS CT WITHOUT CONTRAST CT DOSE: HISTORY: cardiac arrest TECHNIQUE: Multiaxial CT images of the abdomen and pelvis were performed without contrast. A dose lowering technique was utilized adhering to the principles of ALARA. COMPARISON STUDY: None. FINDINGS: Bilateral lower lobe patchy consolidation. No pneumoperitoneum. No pneumatosis. Balloontipped rectal catheter and a rectal thermometer are noted. There is a Rebollar catheter in good position. Right common femoral line tip appears to extend beyond the bifurcation of the right external and internal iliac veins. However, this likely resides within a small side branch. There is no surrounding hematoma to suggest a perforation. Mild to moderate superior endplate compression deformity at L3. This is technically age-indeterminate but is likely chronic given the lack of surrounding edema. Nasogastric tube terminates in the stomach. Multiple nondistended fluid-filled loops of small bowel seen throughout the abdomen. There is also a fluid-filled colon. No definite bowel wall thickening or obstruction. A few colonic diverticula. The uterus and bilateral adnexa are unremarkable. The unenhanced liver, spleen, adrenal glands, gallbladder, and pancreas are within normal limits. Left staghorn calculus with a few additional left renal calculi. Multiple punctate right renal calculi. Atrophic right kidney. No ureteral stones. No hydronephrosis. A few small fat-containing midline ventral hernias. IMPRESSION: 1. Multiple nondistended fluid-filled loops of large and small bowel. This favors a gastroenteritis. No evidence for bowel obstruction. 2. The tip of the right femoral catheter appears to extend beyond the junction of the right internal/external iliac veins. However, there is no surrounding hematoma to suggest a perforation. Therefore, this likely resides within a small side branch. The remaining lines and tubes are within normal limits. 3. Bilateral nephrolithiasis. No hydronephrosis. Electronically signed by: Zoran Hernandze M.D. 08/24/2017 7:31 AM Dictated Date/Time: 08/24/2017 7:22 AM EKG NSR, rate 95 bpm Right bundle branch block Septal infarct , age undetermined QTc prolongation 527 ms Impression Assessment and Plan 82 year old female s/p cardiac arrest x2 s/p Cardiac Arrest - suspect secondary to hypokalemia and cardiac arrhythmia vs. CVA - Code Arctic as per ICU protocol - ICU admission and consult access liaison Intubated on ventilator - managed by ICU Severe hypokalemia - suspect secondary to diarrheal illness while taking acetazolamide and lisinopril - stop acetazolamide and lisinopril - 40meq KCl ordered in ER - continue at rate of 20 meq/hr, BMP after finishes Lactic acidosis - secondary to lack of perfusion during cardiac arrest - currently receiving bicarb drip from ER, repeat ABG - trend lactic acid Hypotension/Shock - cortisol pending - Levophed managed by ICU - goal MAP >60 Acute/Subacute infarct - Focal area of decreased attenuation involving the mid and inferior right cerebellar hemisphere, 3.4 x 2.5 cm - GCS 3 - consult neurology Acute kidney injury - unknown baseline - trend Cr, currently receiving IVF Elevated WBC - likely stress from cardiac arrest, no source of infection identified on CT head, chest, abdomen, pelvis Diarrhea - FOB negative in ER - fecal management system in place Anemia - unknown baseline - FOB negative as above - trend Elevated APTT - no history of lupus known - trend, avoid VTE prophylaxis currently Elevated Glucose - stress related - avoid insulin given severe hypokalemia - trend Resident Physician Supervision Note: I was present with Dr. Garcia during the history and exam. I discussed the case with the resident and agree with the findings and plan as documented in the note. Any exceptions or clarifications are listed here: Unfortunate 82 y/o F Hx Depression/insomnia, HTN - was apparently feeling weak and unwell per daughter. She had been laying on the couch and had sent her daughter out for coffee. When returning to the house later in the day, she was found to be unresponsive. EMS was alerted and had performed CPR for at least 10 min on route to the hospital. After 2 rounds of Epi, her vital signs stabilized, however, she remained unresponsive. She was intubated and had not required sedation at the time of medical evaluation. Initial K was 1.9. OE Unresponsive to sternal rub Pupils are equal and sluggish S1,2 R CTA on vent - limited exam Abdomen is soft Periph pulses are present - cool extrems with adequate cap refil P: Pt is transferred to the ICU - we have no evidence of a precipitating infection and this was more likely the result of her diarrhea leading to hypokalemia, weakness and an arrhythmia We will obtain C diff studies and stool cultures but would not start antibiotics empirically She is stable but unresponsive - her daughter is aware of her critical condition Documented By: Daron Morrow Level of Care Critical Care Advanced Directives Existing Power of [employer]: Yes (daughter - Diann) Resuscitation Status FULL RESUSCITATION (as per daughter) VTE Prophylaxis VTE Risk Assessment Done? Y/N: Yes Risk Level: High Given or contraindicated: Contraindicated (high APTT) Additional Copies To Steven Bradford M.D. Resident Tracking Resident Involvement: Resident Care Provided Care Provided: Adult Hospital Medicine
--- NOTE | 2017-08-24 07:32 | DIAGNOSTIC IMAGING REPORT ---
ABDOMEN AND PELVIS CT WITHOUT CONTRAST CT DOSE: HISTORY: cardiac arrest TECHNIQUE: Multiaxial CT images of the abdomen and pelvis were performed without contrast. A dose lowering technique was utilized adhering to the principles of ALARA. COMPARISON STUDY: None. FINDINGS: Bilateral lower lobe patchy consolidation. No pneumoperitoneum. No pneumatosis. Balloontipped rectal catheter and a rectal thermometer are noted. There is a Rebollar catheter in good position. Right common femoral line tip appears to extend beyond the bifurcation of the right external and internal iliac veins. However, this likely resides within a small side branch. There is no surrounding hematoma to suggest a perforation. Mild to moderate superior endplate compression deformity at L3. This is technically age-indeterminate but is likely chronic given the lack of surrounding edema. Nasogastric tube terminates in the stomach. Multiple nondistended fluid-filled loops of small bowel seen throughout the abdomen. There is also a fluid-filled colon. No definite bowel wall thickening or obstruction. A few colonic diverticula. The uterus and bilateral adnexa are unremarkable. The unenhanced liver, spleen, adrenal glands, gallbladder, and pancreas are within normal limits. Left staghorn calculus with a few additional left renal calculi. Multiple punctate right renal calculi. Atrophic right kidney. No ureteral stones. No hydronephrosis. A few small fat-containing midline ventral hernias. IMPRESSION: 1. Multiple nondistended fluid-filled loops of large and small bowel. This favors a gastroenteritis. No evidence for bowel obstruction. 2. The tip of the right femoral catheter appears to extend beyond the junction of the right internal/external iliac veins. However, there is no surrounding hematoma to suggest a perforation. Therefore, this likely resides within a small side branch. The remaining lines and tubes are within normal limits. 3. Bilateral nephrolithiasis. No hydronephrosis. Electronically signed by: Zoran Hernandez M.D. 08/24/2017 7:31 AM Dictated Date/Time: 08/24/2017 7:22 AM
--- NOTE | 2017-08-24 07:57 | DIAGNOSTIC IMAGING REPORT ---
CHEST ONE VIEW PORTABLE CLINICAL HISTORY: CODE BLUE dyspnea COMPARISON STUDY: No previous studies for comparison. FINDINGS: Endotracheal tube positioned 4 cm with the nargis. Findings of a component of congestive failure. Diaphragms are smooth. No evidence pneumothorax. IMPRESSION: Endotracheal tube 4 cm both nargis. Developing congestive failure. The above report was generated using voice recognition software. It may contain grammatical, syntax or spelling errors. Electronically signed by: Saw Watts M.D. 08/24/2017 7:55 AM Dictated Date/Time: 08/24/2017 7:23 AM
[2017-08-24] MEDS ORDERED: INSULIN ASPART 100 UNITS/ML 3 ML PEN SC SCH (08:00)
--- NOTE | 2017-08-24 08:00 | NUR ---
ID/A: ASSESSMENT COMPLETED. SR ON MONITOR, NO ECTOPY NOTED. VSS. LEVOPHED BEING WEANED OFF TOLERATED. ECHO COMPLETED THIS AM, RESULTS PENDING. CORE TEMP WITHIN GOAL RANGE WITHOUT SUPPORTIVE THERAPY. NO PURPOSEFUL MOVEMENT NOTED. PT HAVING FULL BODY INTERMITTENT TWITCHING. EEG ORDERED WITH CONTINUOUS MONITORING. NEUROLOGY AT BEDSIDE AND REFERS TO MOVEMENT MYOCLONIC MOVEMENT AND RECOMMENDS AN MRI WHEN MEDICALLY STABLE. VENT SETTINGS AND ETT PLACEMENT VERIFIED. PT NOTED TO BREATHE ABOVE SET RATE. RT AT BEDSIDE TO OBTAIN ABG. 2AMP BICARB GTT INFUSING X1 BAG.TV GREATER THAN SET VOLUME. MARIE WITH DECREASING, INADEQUATE UOP. AWARE. DAUGHTER CONTACTED AND WILL BE COMING TO THE HOSPITAL THIS MORNING. GOL IN ROUTE. DC DISPOSITION UNCERTAIN.
[2017-08-24] MEDS ORDERED: FENTANYL 1250MCG/250ML NSS 250 ML IV SCH (08:15)
[2017-08-24 08:24] LABS: INR 1.2 (0.9-1.1); PTT PATIENT 44.9 SECONDS (21.0-31.0)
--- NOTE | 2017-08-24 08:30 | NUR ---
levophed drip turned off patient MAP >65.
[2017-08-24 08:31] LABS: HEMATOCRIT 30.7 % (37-47); HEMOGLOBIN 10.1 g/dL (12.0-16.0); MEAN CELL VOLUME 88.2 fL (80-100); MEAN CORPUSCULAR HGB CONC 32.9 g/dl (32-36); MEAN PLATELET VOLUME 9.9 fL (7.4-10.4); NUCLEATED RED BLOOD CELL ABS 0.02 K/uL (0-0); PLATELET COUNT 191 K/uL (130-400); RED CELL DISTRIBUTION WIDTH CV 15.5 % (11.5-14.5); RED CELL DISTRIBUTION WIDTH SD 49.5 fL (36.4-46.3); WHITE BLOOD COUNT 17.28 K/uL (4.8-10.8)
[2017-08-24 08:36] LABS: IG# 0.07 K/uL (0.00-0.02); LYMPH % 4.9 %; LYMPH ABS # 0.85 K/uL (1.2-3.4); MONO % 3.4 %; MONO ABS # 0.58 K/uL (0.11-0.59); NEUT % 91.3 %; NEUT ABS # 15.78 K/uL (1.4-6.5)
--- NOTE | 2017-08-24 08:47 | Family Medicine Progress Note ---
Progress Note Date of Service Aug 24, 2017. Subjective Pt evaluation today including: conversation w/ family, physical exam, chart review, lab review, review of studies Additional Comments: unable to obtain ROS on patient Medications Current Inpatient Medications Medications (Trade) Dose Ordered Sig/Srikanth Route Start Time Stop Time Status Last Admin Dose Admin Artificial Tears (Lacri-Lube Oph Oint) 1 appln Q2H PRN OPB 08/24/17 02:00 09/23/17 01:59 08/24/17 07:36 1 APPLN Pantoprazole Sodium 40 mg/ Syringe 10 ml @ 5 mls/min DAILY@11 IV 08/24/17 11:00 09/23/17 10:59 08/24/17 11:28 5 MLS/MIN Norepinephrine Bitartrate 8 mg/ Dextrose 508 ml @ 0 mls/hr Q0M PRN IV 08/24/17 01:46 09/23/17 01:45 Insulin Aspart (novoLOG ASPART) SLIDING SCALE [facility] 08/24/17 08:00 09/23/17 07:59 Future Hold Insulin Human Regular 250 units/ Sodium Chloride 252.5 ml @ 0 mls/hr Q24H IV 08/24/17 05:30 09/23/17 05:29 Future Hold Fentanyl Citrate (Fentanyl Inj) 25 mcg Q1H PRN IV 08/24/17 09:15 09/07/17 09:14 08/24/17 12:56 25 MCG Levetiracetam 1000 mg/Dextrose 110 ml @ 420 mls/hr Q12 IV 08/24/17 21:00 09/23/17 20:59 Morphine Sulfate/ Dextrose 250 ml @ 0 mls/hr Q0M PRN IV 08/24/17 15:45 09/07/17 15:44 08/24/17 16:18 4 MLS/HR Objective Vital Signs Date Time Temp Pulse Resp B/P (MAP) Pulse Ox O2 Delivery O2 Flow Rate FiO2 08/24/17 18:00 35.1 75 12 104/55 (71) Room Air 2.0 08/24/17 16:00 35.0 76 23 142/64 (90) 100 Mechanical Ventilator 30 08/24/17 16:00 Mechanical Ventilator 30 08/24/17 16:00 30 08/24/17 14:25 30 08/24/17 14:00 34.4 88 23 162/85 (110) 100 Mechanical Ventilator 30 08/24/17 13:00 34.2 82 21 156/90 (112) 100 Mechanical Ventilator 30.0 30 08/24/17 13:00 34.2 82 21 156/90 (112) 100 Mechanical Ventilator 30 08/24/17 12:00 30 08/24/17 12:00 Mechanical Ventilator 30 08/24/17 12:00 34.7 81 26 145/77 (99) 100 Mechanical Ventilator 30 08/24/17 12:00 34.7 81 26 145/77 (99) 100 Mechanical Ventilator 30 08/24/17 11:37 30 08/24/17 11:00 34.8 78 22 143/73 (96) 100 Mechanical Ventilator 30 08/24/17 11:00 34.8 78 22 143/73 (96) 100 Mechanical Ventilator 30 08/24/17 10:00 34.6 75 25 130/72 (91) 100 Mechanical Ventilator 08/24/17 10:00 34.6 75 25 130/72 (91) 100 Mechanical Ventilator 30 08/24/17 09:00 34.0 68 23 124/69 (87) 100 Mechanical Ventilator 08/24/17 09:00 34.0 68 23 124/69 (87) 100 Mechanical Ventilator 30 08/24/17 08:00 34.0 68 23 124/69 (87) 100 Mechanical Ventilator 08/24/17 08:00 33.8 68 22 112/80 (91) 100 Mechanical Ventilator 30 08/24/17 08:00 Mechanical Ventilator 30 08/24/17 08:00 30 08/24/17 08:00 Mechanical Ventilator 30 08/24/17 07:15 30 08/24/17 07:15 33.7 76 23 123/80 (94) 100 Mechanical Ventilator 30.0 08/24/17 07:00 33.7 76 23 123/80 (94) 100 Mechanical Ventilator 08/24/17 06:00 33.6 72 19 115/65 100 08/24/17 06:00 33.6 72 19 100 08/24/17 06:00 33.6 72 19 08/24/17 05:20 30 08/24/17 05:00 33.0 71 19 117/65 (82) 100 Mechanical Ventilator 30 08/24/17 05:00 33.0 71 19 117/65 (84) 100 08/24/17 05:00 33.0 71 19 08/24/17 04:00 31.9 68 17 100 08/24/17 04:00 31.9 68 17 117/57 (77) 100 Mechanical Ventilator 30 08/24/17 04:00 31.9 68 17 117/57 (77) 100 Mechanical Ventilator 30 08/24/17 04:00 100 Mechanical Ventilator 30 08/24/17 04:00 30 08/24/17 03:11 31.4 63 16 121/58 (69) 100 08/24/17 03:01 31.3 64 16 125/59 (76) 100 08/24/17 03:00 31.3 62 16 100 08/24/17 03:00 31.3 62 16 125/59 (81) 100 Mechanical Ventilator 30 08/24/17 02:41 31.3 64 17 125/57 (87) 100 08/24/17 02:39 31.3 63 17 124/62 (87) 100 08/24/17 02:21 31.4 61 17 110/56 (89) 100 08/24/17 02:01 31.6 61 18 89/57 (83) 100 08/24/17 02:00 31.6 67 19 100 08/24/17 02:00 31.6 67 19 89/57 (68) 100 Mechanical Ventilator 40 08/24/17 01:59 50 08/24/17 01:48 115/54 08/24/17 01:46 Mechanical Ventilator 08/24/17 01:11 18 08/24/17 01:06 107/55 08/24/17 01:01 107/57 08/24/17 00:56 111/53 08/24/17 00:51 109/55 08/24/17 00:46 110/53 08/24/17 00:41 63 15 116/53 100 Mechanical Ventilator 08/24/17 00:36 112/56 08/24/17 00:31 101/50 08/24/17 00:26 91/50 08/24/17 00:21 90/46 08/24/17 00:19 87/46 08/24/17 00:17 80/ 08/24/17 00:11 91/44 08/24/17 00:08 66 20 99 Mechanical Ventilator 08/24/17 00:06 93/45 08/24/17 00:01 92/48 08/23/17 23:56 89/44 08/23/17 23:51 91/45 08/23/17 23:46 91/45 08/23/17 23:41 91/45 08/23/17 23:38 66 22 99 Mechanical Ventilator 08/23/17 23:36 89/46 08/23/17 23:33 93/48 08/23/17 23:31 90/49 08/23/17 23:26 90/41 08/23/17 23:21 69/48 08/23/17 23:11 108/52 08/23/17 23:09 Mechanical Ventilator 08/23/17 23:08 74 13 100 08/23/17 23:06 36.4 08/23/17 23:06 Mechanical Ventilator 50 08/23/17 23:01 114/75 08/23/17 23:01 50 08/23/17 23:00 83 08/23/17 22:58 70 08/23/17 22:42 36.4 85 16 159/91 99 Mechanical Ventilator 08/23/17 22:42 159/91 Physical Exam Neck: supple, no adenopathy Respiratory/Chest: + pertinent finding (patient on ventilator ) Cardiovascular: regular rate, rhythm Abdomen: soft, no organomegaly, no pulsatile mass Neurologic/Psychiatric: + pertinent finding (pinpoint pupils, patient unresponsive ) Laboratory Results Test 08/23/17 22:45 08/23/17 22:55 08/23/17 22:58 08/23/17 23:09 Platelet Estimate NORMAL Hypochromasia PRESENT Basophilic Stippling OCCASIONAL Total Creatine Kinase 63 U/L (26-192) Creatine Kinase MB 2.5 ng/ml (0.5-3.6) Creatine Kinase MB Ratio 4.0 (0-3.0) Bedside Lactic Acid Venous 7.17 mmol/L (0.90-1.70) Bedside Troponin I 0.070 ng/ml (0-0.045) Arterial Blood pH 7.25 (7.35-7.45) Arterial Blood Partial Pressure CO2 36 mmHg (35-46) Arterial Blood Partial Pressure O2 265 mm/Hg (80-95) Arterial Blood HCO3 15 mmol/L (19-24) Arterial Blood Oxygen Saturation 99.7 % (90-95) Arterial Blood Base Excess -10.9 mEq/L (-9-1.8) Arterial Blood Gas Delivery 50% Irineo Test POS (POS) Test 08/24/17 00:00 08/24/17 01:15 08/24/17 02:41 08/24/17 02:46 Urine Color YELLOW Urine Appearance CLOUDY (CLEAR) Urine pH 6.5 (4.5-7.5) Urine Specific [place] 1.013 (1.000-1.030) Urine Protein 1+ (NEG) Urine Glucose (UA) 1+ (NEG) Urine Ketones NEG (NEG) Urine Occult Blood 2+ (NEG) Urine Nitrite NEG (NEG) Urine Bilirubin NEG (NEG) Urine Urobilinogen NEG (NEG) Urine Leukocyte Esterase LARGE (NEG) Urine WBC (Auto) >30 /hpf (0-5) Urine RBC (Auto) >30 /hpf (0-4) Urine Hyaline Casts (Auto) 1-5 /lpf (0-5) Urine Epithelial Cells (Auto) 0-5 /lpf (0-5) Urine Bacteria (Auto) NEG (NEG) Urine Yeast (Auto) (NONE PRSENT) Lactic Acid Level 3.9 mmol/L (0.4-2.0) Ethyl Alcohol mg/dL < 3.0 mg/dl (0-3) Estimated Average Glucose 91 mg/dl Hemoglobin A1c 4.8 % (4.5-5.6) Osmolality 322 mOsm/kg (280-300) Ionized Calcium 1.17 mmol/l (1.12-1.32) Thyroid Stimulating Hormone (TSH) 4.870 uIu/ml (0.300-4.500) Free Thyroxine 0.85 ng/dl (0.80-1.60) Random Cortisol 48.49 mcg/dl Urine Opiates Screen NEG (NEG) Urine Methadone, Qualitative NEG (NEG) Urine Barbiturates NEG (NEG) Urine Phencyclidine (PCP) Level NEG (NEG) Ur Amphetamine/Methamphetamine NEG (NEG) MDMA (Ecstasy) Screen NEG (NEG) Urine Benzodiazepines Screen NEG (NEG) Urine Cocaine Metabolite NEG (NEG) Urine Marijuana (THC) NEG (NEG) Test 08/24/17 05:28 08/24/17 07:51 08/24/17 08:12 08/24/17 11:56 Bedside Hemoglobin 9.9 g/dl (12.0-16.0) Bedside Hematocrit 29 % (37-47) Bedside Sodium 145 mEq/L (135-144) Bedside Potassium < 2.0 mEq/L (3.3-5.0) Bedside Chloride 113 mEq/L (101-112) Bedside Total CO2 14 mEq/l (24-31) Bedside Blood Urea Nitrogen 29 mg/dl (7-18) Bedside Creatinine 2.4 mg/dl (0.6-1.3) Bedside Ionized Calcium (Chris) 1.17 mmol/l (1.12-1.32) Nucleated RBC Absolute Count (auto) 0.02 K/uL (0-0) Nucleated Red Blood Cells % 0.1 % Toxic Granulation 2+ Dohle Bodies 1+ Bedside Glucose (other) 503 mg/dl (70-99) RDW Standard Deviation 48.7 fL (36.4-46.3) RDW Coefficient of Variation 15.3 % (11.5-14.5) White Blood Count 16.40 K/uL (4.8-10.8) Red Blood Count 3.81 M/uL (4.2-5.4) Hemoglobin 10.8 g/dL (12.0-16.0) Hematocrit 33.2 % (37-47) Mean Corpuscular Volume 87.1 fL (80-100) Mean Corpuscular Hemoglobin 28.3 pg (25-34) Mean Corpuscular Hemoglobin Concent 32.5 g/dl (32-36) Platelet Count 215 K/uL (130-400) Mean Platelet Volume 9.8 fL (7.4-10.4) Neutrophils (%) (Auto) 91.7 % Lymphocytes (%) (Auto) 4.1 % Monocytes (%) (Auto) 3.6 % Eosinophils (%) (Auto) 0.1 % Basophils (%) (Auto) 0.1 % Neutrophils # (Auto) 15.05 K/uL (1.4-6.5) Lymphocytes # (Auto) 0.67 K/uL (1.2-3.4) Monocytes # (Auto) 0.59 K/uL (0.11-0.59) Eosinophils # (Auto) 0.01 K/uL (0-0.5) Basophils # (Auto) 0.01 K/uL (0-0.2) Immature Granulocyte % (Auto) 0.4 % Immature Granulocyte # (Auto) 0.07 K/uL (0.00-0.02) Hypersegmented Polys 1+ Anisocytosis PRESENT Echinocytes 1+ Est Creatinine Clear Calc Drug Dose 13.2 ml/min Total Bilirubin 0.3 mg/dl (0.2-1) Direct Bilirubin 0.1 mg/dl (0-0.2) Aspartate Amino Transf (AST/SGOT) 133 U/L (15-37) Alanine Aminotransferase (ALT/SGPT) 58 U/L (12-78) Alkaline Phosphatase 77 U/L (45-117) Total Protein 6.1 gm/dl (6.4-8.2) Albumin 2.6 gm/dl (3.4-5.0) Beta-Hydroxybutyric Acid 1.50 mg/dL (0.2-2.81) Test 08/24/17 12:01 08/24/17 12:16 08/24/17 16:00 Bedside Glucose 401 mg/dl (70-90) Blood Gas Sample Site L Radial Bedside Blood Gas pH (LAB) 7.20 (7.35-7.45) Bedside Blood Gas pCO2 (LAB) 23 mmHg (35-46) Bedside Blood Gas pO2 (LAB) 124 mmHg (80-95) Bedside Blood Gas HCO3 (LAB) 10 meq/L (19-24) Bedside Blood Gas Total CO2 10 mEq/l (24-31) Bedside Blood Gas Base Excess (LAB) -19.0 meq/L (-9-1.8) Bedside Blood Gas O2 Saturation 98.0 % (90-95) Irineo Test Pass Oxygen Delivery Device Ventilator Bedside Oxygen Rate (breaths/min) 12 Blood Gas Minute Ventilation 17.8 Bedside FiO2 30 % Blood Gas Tidal Volume 500 Blood Gas PEEP 5 Date/Time Source Procedure Growth Status 08/24/17 00:00 Nasal MRSA DNA Surveillance Screen - Final Specimen Negative for MRSA by DNA Probe Complete 08/23/17 23:10 Stool C.difficile Toxin B Gene (PCR) - Final No C. difficile toxin B gene detected Complete Assessment and Plan 82 yo female admitted to the ICU after cardiac arrest, most probably 2/2 to hypokalemia Pt was resuscitated in route to the hospital and placed on mechanical ventilation The patient suffered a suspected ischemic stroke, was unresponsive, [place] of 3 , with unreactive pupils. Pt daughter was brought to the hospital, code status was changed to DNR At 1640, pt was extubated and provided comfort measures only. Assessment/Plan Resident Physician Supervision Note: I was present with Dr. Green during the history and exam. I discussed the case with the resident and agree with the findings and plan as documented in the note. Any exceptions or clarifications are listed here. 82 y/o female w/ multiple out of hospital arrests presently on hypothermia protocol, VDRF, critical hypokalemia. Nonverbal but responsive to light touch during examination without purposeful movement or attention. Examination showed fixed upward gaze with fixed pinpoint pupils on examination. B/L breath sounds are rhonchorous. S1/S2 nl RRR no MCG. Nt/ND, BS+ At present, patient will complete code arctic with echocardiogram and assessment from cardiology consultation and EEG with consultation from neurology. Repletion for hypokalemia in the setting of bicarbonate for metabolic acidosis w/ q4 hour BMP. Elevated coags with anemia of unknown source with CBC monitoring. Hyperglycemia concerning for DMII without diagnosis, f/u A1c, trend FSBS. The patient is full code and the daughter has been as yet unavailable. Would strongly consider goals of care conversation as soon as possible.
--- NOTE | 2017-08-24 09:10 | NUR ---
Fentanyl drip turned off per reliability engineer order.
[2017-08-24] MEDS ORDERED: INSULIN ASPART 100 UNITS/ML 3 ML PEN SC ONE ×2 (09:15→12:00)
--- NOTE | 2017-08-24 09:23 | Neurology Consultation ---
Neurology Consultation Date of Consultation: Aug 24, 2017. Attending Physician: Daron Morrow M.D. Primary Care Physician: No Doctor, Assigned Reason for Consultation: Stroke, post anoxic myoclonus, status post cardiac arrest History of Present Illness Source: hospital records The patient is an 82-year-old female who was found unresponsive by her daughter. The patient was last seen well or at her baseline approximately 5 minutes prior to being found unresponsive in her bed. She had been complaining of a head cold for several days but otherwise, nothing different. The patient has a history of chronic insomnia and has prescriptions for Prozac, Seroquel, and trazodone. Emergency medical personnel apparently had to bring the patient out of her house to initiate CPR due to hoarding. She was noted to have pulseless electrical activity. A sinus rhythm was restored. She was intubated in the field and remains unresponsive and was evaluated in the intensive care unit on the mechanical ventilator. She has been exhibiting intermittent myoclonic jerking of the limbs and facial musculature. The hypothermia protocol has been initiated which includes continuous EEG monitoring. I did review the images and radiologist's interpretation pertaining to the CT of the head obtained upon presentation. There is an area of lucency within the right mid and inferior cerebellum measuring 3.4 x 2.5 cm and consistent with a subacute infarct. There is no associated shift or hemorrhage. 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 Several electrocardiograms have been completed on this patient revealing right bundle branch block, PVCs, fusion complexes, ischemic changes, and PACs. CK 63. Troponin mildly elevated 0.070. TSH mildly elevated 4.87. Glucose 310. Past Medical/Surgical History Medical Problems: (1) Acute renal failure Status: Acute (2) Anemia Status: Acute (3) Cardiac arrest Status: Acute (4) Hypokalemia Status: Acute Family History Unable to obtain from patient. Information not relevant in the context of patient's acute medical illness and age. Social History Alcohol Use: none Drug Use: none Marital Status: single Housing Status: lives with family Occupation Status: retired Allergies Coded Allergies: Ofloxacin (Verified Allergy, Unknown, RASH, 08/23/17) Uncoded Allergies: ERYTHROMYCIN BASE (Allergy, Unknown, unknown, 08/23/17) Current Inpatient Medications Current Inpatient Medications Medications (Trade) Dose Ordered Sig/Srikanth Route Start Time Stop Time Status Last Admin Dose Admin Artificial Tears (Lacri-Lube Oph Oint) 1 appln Q2H PRN OPB 08/24/17 02:00 09/23/17 01:59 08/24/17 07:36 1 APPLN Pantoprazole Sodium 40 mg/ Syringe 10 ml @ 5 mls/min DAILY@11 IV 08/24/17 11:00 09/23/17 10:59 Norepinephrine Bitartrate 8 mg/ Dextrose 508 ml @ 0 mls/hr Q0M PRN IV 08/24/17 01:46 09/23/17 01:45 Insulin Aspart (novoLOG ASPART) SLIDING SCALE [facility] 08/24/17 08:00 09/23/17 07:59 Insulin Human Regular 250 units/ Sodium Chloride 252.5 ml @ 0 mls/hr Q24H IV 08/24/17 05:30 09/23/17 05:29 Potassium Chloride 20 meq/ Prmx 100 ml @ 100 mls/hr 0630,0730,0830 IV 08/24/17 06:30 08/24/17 12:00 08/24/17 08:34 100 MLS/HR Fentanyl Citrate 250 ml @ 0 mls/hr Q0M IV 08/24/17 08:15 09/07/17 08:14 08/24/17 08:53 5 MLS/HR Review of Systems Unable to obtain from patient as she is intubated and unresponsive Physical Exam Vital Signs (Past 24 Hrs): Date Time Temp Pulse Resp B/P (MAP) Pulse Ox O2 Delivery O2 Flow Rate FiO2 08/24/17 07:15 30 08/24/17 07:15 33.7 76 23 123/80 (94) 100 Mechanical Ventilator 30.0 08/24/17 07:00 33.7 76 23 123/80 (94) 100 Mechanical Ventilator 08/24/17 06:00 33.6 72 19 115/65 100 08/24/17 06:00 33.6 72 19 100 08/24/17 06:00 33.6 72 19 08/24/17 05:20 30 08/24/17 05:00 33.0 71 19 117/65 (82) 100 Mechanical Ventilator 30 08/24/17 05:00 33.0 71 19 117/65 (84) 100 08/24/17 05:00 33.0 71 19 08/24/17 04:00 31.9 68 17 100 08/24/17 04:00 31.9 68 17 117/57 (77) 100 Mechanical Ventilator 30 08/24/17 04:00 31.9 68 17 117/57 (77) 100 Mechanical Ventilator 30 08/24/17 04:00 100 Mechanical Ventilator 30 08/24/17 04:00 30 08/24/17 03:11 31.4 63 16 121/58 (69) 100 08/24/17 03:01 31.3 64 16 125/59 (76) 100 08/24/17 03:00 31.3 62 16 100 08/24/17 03:00 31.3 62 16 125/59 (81) 100 Mechanical Ventilator 30 08/24/17 02:41 31.3 64 17 125/57 (87) 100 08/24/17 02:39 31.3 63 17 124/62 (87) 100 08/24/17 02:21 31.4 61 17 110/56 (89) 100 08/24/17 02:01 31.6 61 18 89/57 (83) 100 08/24/17 02:00 31.6 67 19 100 08/24/17 02:00 31.6 67 19 89/57 (68) 100 Mechanical Ventilator 40 08/24/17 01:59 50 08/24/17 01:48 115/54 08/24/17 01:46 Mechanical Ventilator 08/24/17 01:11 18 08/24/17 01:06 107/55 08/24/17 01:01 107/57 08/24/17 00:56 111/53 08/24/17 00:51 109/55 08/24/17 00:46 110/53 08/24/17 00:41 63 15 116/53 100 Mechanical Ventilator 08/24/17 00:36 112/56 08/24/17 00:31 101/50 08/24/17 00:26 91/50 08/24/17 00:21 90/46 08/24/17 00:19 87/46 08/24/17 00:17 80/ 08/24/17 00:11 91/44 08/24/17 00:08 66 20 99 Mechanical Ventilator 08/24/17 00:06 93/45 08/24/17 00:01 92/48 08/23/17 23:56 89/44 08/23/17 23:51 91/45 08/23/17 23:46 91/45 08/23/17 23:41 91/45 08/23/17 23:38 66 22 99 Mechanical Ventilator 08/23/17 23:36 89/46 08/23/17 23:33 93/48 08/23/17 23:31 90/49 08/23/17 23:26 90/41 08/23/17 23:21 69/48 08/23/17 23:11 108/52 08/23/17 23:09 Mechanical Ventilator 08/23/17 23:08 74 13 100 08/23/17 23:06 36.4 08/23/17 23:06 Mechanical Ventilator 50 08/23/17 23:01 114/75 08/23/17 23:01 50 08/23/17 23:00 83 08/23/17 22:58 70 08/23/17 22:42 36.4 85 16 159/91 99 Mechanical Ventilator 08/23/17 22:42 159/91 The patient is a thin, elderly female. She is on the mechanical ventilator in the ICU and unresponsive. Pupils pinpoint, unreactive. Gaze conjugate. No nystagmus or gaze deviation. Patient exhibits intermittent myoclonic jerking of the arms, legs, and facial musculature. No abnormal posturing of the limbs appreciated. Laboratory Results Past 24 Hours: 08/24/17 07:51 Red Blood Count 3.48, Mean Corpuscular Volume 88.2 #, Mean Corpuscular Hemoglobin 29.0, Mean Corpuscular Hemoglobin Concent 32.9, Mean Platelet Volume 9.9, Neutrophils (%) (Auto) 91.3, Lymphocytes (%) (Auto) 4.9, Monocytes (%) ( Auto) 3.4, Eosinophils (%) (Auto) 0.0, Basophils (%) (Auto) 0.0, Neutrophils # ( Auto) 15.78, Lymphocytes # (Auto) 0.85, Monocytes # (Auto) 0.58, Eosinophils # ( Auto) 0.00, Basophils # (Auto) 0.00 Test 08/23/17 22:45 08/23/17 22:55 08/23/17 22:58 08/23/17 23:09 Platelet Estimate NORMAL Hypochromasia PRESENT Basophilic Stippling OCCASIONAL Echinocytes 1+ Total Bilirubin 0.1 mg/dl (0.2-1) Direct Bilirubin < 0.1 mg/dl (0-0.2) Aspartate Amino Transf (AST/SGOT) 61 U/L (15-37) Alanine Aminotransferase (ALT/SGPT) 34 U/L (12-78) Alkaline Phosphatase 56 U/L (45-117) Total Creatine Kinase 63 U/L (26-192) Creatine Kinase MB 2.5 ng/ml (0.5-3.6) Creatine Kinase MB Ratio 4.0 (0-3.0) Total Protein 4.7 gm/dl (6.4-8.2) Albumin 2.1 gm/dl (3.4-5.0) Bedside Lactic Acid Venous 7.17 mmol/L (0.90-1.70) Bedside Troponin I 0.070 ng/ml (0-0.045) Arterial Blood pH 7.25 (7.35-7.45) Arterial Blood Partial Pressure CO2 36 mmHg (35-46) Arterial Blood Partial Pressure O2 265 mm/Hg (80-95) Arterial Blood HCO3 15 mmol/L (19-24) Arterial Blood Oxygen Saturation 99.7 % (90-95) Arterial Blood Base Excess -10.9 mEq/L (-9-1.8) Arterial Blood Gas Delivery 50% Irineo Test POS (POS) Test 08/24/17 00:00 08/24/17 01:15 08/24/17 02:41 08/24/17 02:46 Urine Color YELLOW Urine Appearance CLOUDY (CLEAR) Urine pH 6.5 (4.5-7.5) Urine Specific [place] 1.013 (1.000-1.030) Urine Protein 1+ (NEG) Urine Glucose (UA) 1+ (NEG) Urine Ketones NEG (NEG) Urine Occult Blood 2+ (NEG) Urine Nitrite NEG (NEG) Urine Bilirubin NEG (NEG) Urine Urobilinogen NEG (NEG) Urine Leukocyte Esterase LARGE (NEG) Urine WBC (Auto) >30 /hpf (0-5) Urine RBC (Auto) >30 /hpf (0-4) Urine Hyaline Casts (Auto) 1-5 /lpf (0-5) Urine Epithelial Cells (Auto) 0-5 /lpf (0-5) Urine Bacteria (Auto) NEG (NEG) Urine Yeast (Auto) (NONE PRSENT) Est Creatinine Clear Calc Drug Dose 16.1 ml/min Lactic Acid Level 3.9 mmol/L (0.4-2.0) Beta-Hydroxybutyric Acid 2.21 mg/dL (0.2-2.81) Ethyl Alcohol mg/dL < 3.0 mg/dl (0-3) Estimated Average Glucose 91 mg/dl Hemoglobin A1c 4.8 % (4.5-5.6) Osmolality 322 mOsm/kg (280-300) Ionized Calcium 1.17 mmol/l (1.12-1.32) Thyroid Stimulating Hormone (TSH) 4.870 uIu/ml (0.300-4.500) Free Thyroxine 0.85 ng/dl (0.80-1.60) Random Cortisol 48.49 mcg/dl Urine Opiates Screen NEG (NEG) Urine Methadone, Qualitative NEG (NEG) Urine Barbiturates NEG (NEG) Urine Phencyclidine (PCP) Level NEG (NEG) Ur Amphetamine/Methamphetamine NEG (NEG) MDMA (Ecstasy) Screen NEG (NEG) Urine Benzodiazepines Screen NEG (NEG) Urine Cocaine Metabolite NEG (NEG) Urine Marijuana (THC) NEG (NEG) Test 08/24/17 07:51 08/24/17 08:12 08/24/17 08:16 White Blood Count 17.28 K/uL (4.8-10.8) Red Blood Count 3.48 M/uL (4.2-5.4) Hemoglobin 10.1 g/dL (12.0-16.0) Hematocrit 30.7 % (37-47) Mean Corpuscular Volume 88.2 fL (80-100) Mean Corpuscular Hemoglobin 29.0 pg (25-34) Mean Corpuscular Hemoglobin Concent 32.9 g/dl (32-36) Platelet Count 191 K/uL (130-400) Mean Platelet Volume 9.9 fL (7.4-10.4) Neutrophils (%) (Auto) 91.3 % Lymphocytes (%) (Auto) 4.9 % Monocytes (%) (Auto) 3.4 % Eosinophils (%) (Auto) 0.0 % Basophils (%) (Auto) 0.0 % Neutrophils # (Auto) 15.78 K/uL (1.4-6.5) Lymphocytes # (Auto) 0.85 K/uL (1.2-3.4) Monocytes # (Auto) 0.58 K/uL (0.11-0.59) Eosinophils # (Auto) 0.00 K/uL (0-0.5) Basophils # (Auto) 0.00 K/uL (0-0.2) RDW Standard Deviation 49.5 fL (36.4-46.3) RDW Coefficient of Variation 15.5 % (11.5-14.5) Immature Granulocyte % (Auto) 0.4 % Immature Granulocyte # (Auto) 0.07 K/uL (0.00-0.02) Nucleated RBC Absolute Count (auto) 0.02 K/uL (0-0) Nucleated Red Blood Cells % 0.1 % Toxic Granulation 2+ Dohle Bodies 1+ Anisocytosis PRESENT Prothrombin Time 13.4 SECONDS (9.0-12.0) Prothromb Time International Ratio 1.2 (0.9-1.1) Activated Partial Thromboplast Time 44.9 SECONDS (21.0-31.0) Partial Thromboplastin Ratio 1.7 Bedside Glucose (other) 503 mg/dl (70-99) Blood Gas Sample Site R Radial Bedside Blood Gas pH (LAB) 7.28 (7.35-7.45) Bedside Blood Gas pCO2 (LAB) 22 mmHg (35-46) Bedside Blood Gas pO2 (LAB) 124 mmHg (80-95) Bedside Blood Gas HCO3 (LAB) 10 meq/L (19-24) Bedside Blood Gas Total CO2 11 mEq/l (24-31) Bedside Blood Gas Base Excess (LAB) -17.0 meq/L (-9-1.8) Bedside Blood Gas O2 Saturation 99.0 % (90-95) Irineo Test Pass Oxygen Delivery Device Ventilator Bedside Oxygen Rate (breaths/min) 12 Blood Gas Minute Ventilation 12.6 Bedside FiO2 30 % Blood Gas Tidal Volume 500 Blood Gas PEEP 5 Date/Time Source Procedure Growth Status 08/24/17 00:00 Nasal MRSA DNA Surveillance Screen - Final Specimen Negative for MRSA by DNA Probe Complete 08/23/17 23:10 Stool C.difficile Toxin B Gene (PCR) - Final No C. difficile toxin B gene detected Complete Impression This is an 82-year-old female who is status post cardiac arrest. She is exhibiting some post anoxic myoclonus. 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 Prognosis for recovery seems poor. Plan Continue supportive care including continuous EEG monitoring. I would recommend treatment of post anoxic myoclonus with Keppra. Would start with 1000 mg IV every 12 hours. Would obtain a repeat CT of the head today to evaluate for hemorrhagic conversion of her right cerebellar infarct and possible development of intracranial shift/herniation Would obtain a brain MRI when medically stable, if possible
[2017-08-24 09:29] LABS: CALCIUM 7.4 mg/dl (8.5-10.1); CREATININE 2.62 mg/dl (0.60-1.20); POTASSIUM 2.4 mmol/L (3.5-5.1)
[2017-08-24] MEDS ORDERED: LEVETIRACETAM IV 1,000 MG in DEXTROSE 5% 100ML 100 ML IV ONE (09:45)
--- NOTE | 2017-08-24 10:00 | NUR ---
A: Patient was turned from [id number] to get cleaned from a BM. EEG monitor intact.
--- NOTE | 2017-08-24 10:16 | ECHOCARDIOGRAM REPORT ---
*NOTICE TO RECEIVING [employer]Y This information is strictly Confidential and protected under [place] law. [place] law prohibits you from making any further disclosure of this information unless further disclosure is expressly permitted by the written consent of the person to whom it pertains or is authorized by law. A general authorization for the release of medical or other information is not sufficient for this purpose. Hospital accepts no responsibility if the information is made available to any other person, INCLUDING THE PATIENT. Interpretation Summary * Name: SHANTEL CHAVEZ Study Date: 08/24/2017 07:35 AM BP: 123/80 mmHg * Patient Location: .MSICU\S\E106\S\1 HR: 76 * : 1935 (M/d/yyyy) Gender: Female Height: 62 in * Age: 82 yrs Ethnicity: [place] Weight: 132 lb * Ordering Physician: Sobeida Alvarez * Referring Physician: Self, Referred * Performed By: Trudi Zavala RDCS * * Reason For Study: CARDIAC ARREST * BSA: 1.6 m2 * -- Conclusions -- * Left ventricular systolic function is moderate to severely reduced. * Grade I diastolic dysfunction, (abnormal relaxation pattern). * There are regional wall motion abnormalities as specified. * There is mild mitral regurgitation. Procedure Details * A complete two-dimensional transthoracic echocardiogram was performed (2D, M-mode, Doppler and color flow Doppler). Left Ventricle * The left ventricle is grossly normal size. * Ejection Fraction = 25-30%. * Left ventricular systolic function is moderate to severely reduced. * Grade I diastolic dysfunction, (abnormal relaxation pattern). * Severe global hypokinesis with normal motion of the basal septum * There are regional wall motion abnormalities as specified. Right Ventricle * The right ventricle is normal in size and function. * The right ventricular systolic function is normal as assessed by tricuspid annular plane systolic excursion (TAPSE) (normal >1.5 cm). Mitral Valve * The mitral valve is grossly normal. * There is mild mitral regurgitation. Tricuspid Valve * The tricuspid valve is not well visualized. * Significant tricuspid regurgitation is absent. Aortic Valve * The aortic valve is not well visualized. * No hemodynamically significant valvular aortic stenosis. * There is no significant aortic regurgitation. Great Vessels * The aortic root is normal size. Pericardium/Pleural * Trace pericardial effusion. Great Vessels * Normal inferior vena cava diameter and respiratory variation suggests normal central venous pressure. MMode 2D Measurements and Calculations Ao root diam 3.2 cm Ao root area 7.8 cm\S\2 LVAd ap4 23.9 cm\S\2 LVLd ap4 7.5 cm EDV(MOD-sp4) 65.4 ml EDV(sp4-el) 64.3 ml LVAs ap4 17.2 cm\S\2 LVLs ap4 7.1 cm ESV(MOD-sp4) 38.5 ml ESV(sp4-el) 35.3 ml EF(MOD-sp4) 41.2 % EF(sp4-el) 45.1 % LVAd ap2 19.0 cm\S\2 LVLd ap2 7.1 cm EDV(MOD-sp2) 42.2 ml EDV(sp2-el) 43.6 ml LVAs ap2 12.7 cm\S\2 LVLs ap2 6.1 cm ESV(MOD-sp2) 22.6 ml ESV(sp2-el) 22.7 ml EF(MOD-sp2) 46.4 % EF(sp2-el) 48.0 % LVLd %diff -6.44 % EDV(MOD-bp) 52.1 ml LVLs %diff -17.72 % ESV(MOD-bp) 31.1 ml EF(MOD-bp) 40.2 % SV(MOD-sp4) 26.9 ml SI(MOD-sp4) 16.8 ml/m\S\2 SV(MOD-sp2) 19.6 ml SI(MOD-sp2) 12.2 ml/m\S\2 SV(MOD-bp) 21.0 ml SI(MOD-bp) 13.1 ml/m\S\2 SV(sp4-el) 29.0 ml SI(sp4-el) 18.1 ml/m\S\2 SV(sp2-el) 21.0 ml SI(sp2-el) 13.1 ml/m\S\2 Doppler Measurements and Calculations MV E max boni 41.0 cm/sec MV A max boni 104.1 cm/sec MV E/A 0.39 MV dec time 0.22 sec Ao V2 max 100.9 cm/sec Ao max PG 4.1 mmHg Ao max PG (full) 1.9 mmHg LV V1 max PG 2.2 mmHg LV V1 max 73.3 cm/sec
[2017-08-24 10:24] LABS: PHOSPHORUS 1.9 mg/dl (2.5-4.9)
[2017-08-24 10:32] LABS: ISTAT CREATININE 2.2 mg/dl (0.6-1.3); ISTAT IONIZED CALCIUM 1.24 mmol/l (1.12-1.32); ISTAT POTASSIUM < 2.0 mEq/L (3.3-5.0); ISTAT SODIUM 144 mEq/L (135-144)
[2017-08-24 10:33] LABS: ISTAT CREATININE 2.4 mg/dl (0.6-1.3); ISTAT IONIZED CALCIUM 1.17 mmol/l (1.12-1.32); ISTAT POTASSIUM < 2.0 mEq/L (3.3-5.0); ISTAT SODIUM 145 mEq/L (135-144)
[2017-08-24] MEDS: FENTANYL CITRATE INJ 50 MCG/1 ML 2 ML VIAL IV PRN ×3 (10:37→12:56)
[2017-08-24] MEDS ORDERED: PANTOprazole INJ 40 MG in SYRINGE 0 ML IV SCH (11:00)
--- NOTE | 2017-08-24 11:26 | NUR ---
Pastoral Care, ICU, initial visit. Pt intubated, unable to respond to me, I spoke with her daughter, Diann. Per daughter, pt is Voodoo, no zoroastrianism affiliation, she requests a electrician marine visit for last rites. Pt's daughter adjusting to this sudden event, has no other family and apparently little social support, requested prayer. Per daughter, pt has two elderly sisters who live out of state. I introduced our service, provided spiritual and emotional support, prayed with her, at her request, contacted the electrician marine food production supervisor, assured her of my continuing availability and prayers on the pt's behalf, and will follow.
--- NOTE | 2017-08-24 11:50 | NUR ---
A: Patient repositioned in bed and pulled up at 1150. EEG intact.
[2017-08-24] MEDS ORDERED: POTASSIUM PHOS 3 MMOL/1 ML INFUSION IV STA (12:00)
--- NOTE | 2017-08-24 12:00 | NUR ---
A: ASSESSMENT COMPLETED. VSS. SR ON MONITOR, OCCASIONAL ECTOPY NOTED. DAUGHTER REMAINS AT BEDSIDE. CODE STATUS CHANGED TO DNR.
--- NOTE | 2017-08-24 12:01 | NUR ---
blood glucose 401 dr newell aware. ordered 10 units novolog.
[2017-08-24 12:16] LABS: HEMATOCRIT 33.2 % (37-47); HEMOGLOBIN 10.8 g/dL (12.0-16.0); MEAN CELL VOLUME 87.1 fL (80-100); MEAN CORPUSCULAR HEMOGLOBIN 28.3 pg (25-34); MEAN CORPUSCULAR HGB CONC 32.5 g/dl (32-36); MEAN PLATELET VOLUME 9.8 fL (7.4-10.4); PLATELET COUNT 215 K/uL (130-400); RED CELL DISTRIBUTION WIDTH CV 15.3 % (11.5-14.5); RED CELL DISTRIBUTION WIDTH SD 48.7 fL (36.4-46.3)
[2017-08-24 12:30] LABS: INR 1.2 (0.9-1.1); PTT PATIENT 41.7 SECONDS (21.0-31.0)
[2017-08-24] MEDS ORDERED: NURSING VERBAL MED ORDER ONE ×2 (12:30→15:30)
[2017-08-24 12:45] LABS: BASO % 0.1 %; BASO ABS # 0.01 K/uL (0-0.2); CALCIUM 7.4 mg/dl (8.5-10.1); CREATININE 2.69 mg/dl (0.60-1.20); EOS % 0.1 %; EOS ABS # 0.01 K/uL (0-0.5); IG# 0.07 K/uL (0.00-0.02); LYMPH % 4.1 %; LYMPH ABS # 0.67 K/uL (1.2-3.4); MONO % 3.6 %; MONO ABS # 0.59 K/uL (0.11-0.59); NEUT % 91.7 %; NEUT ABS # 15.05 K/uL (1.4-6.5); PHOSPHORUS 1.9 mg/dl (2.5-4.9); POTASSIUM 2.5 mmol/L (3.5-5.1)
[2017-08-24 12:57] LABS: ALBUMIN 2.6 gm/dl (3.4-5.0); TOTAL PROTEIN 6.1 gm/dl (6.4-8.2)
[2017-08-24] MEDS ORDERED: POTASSIUM PHOSPHATE INJ 24 MMOL in SODIUM CHLORIDE 0.9% 500ML 500 ML IV ONE (13:00)
--- NOTE | 2017-08-24 13:41 | NUR ---
Case Management: Needs identified; Patient unresponsive, on mechanical ventilator. Patient's daughter Diann at bedside. Patient lives at home with her daughter Diann. They live in the first floor apartment of a home. Prior to her admission the patient was independent for all ADL's without the use of assistive device. She does not have home oxygen. Neither the patient or her daughter are able to drive, so generally rely on neighbors for transportation. The patient did not have active services prior to admission. Diann was able to get a ride to the hospital from neighbors. Neighbors have visited with the patient as well, and told case management that they can assist with transportation during this time. They seem to be very concerned and supportive. Diann states that there are no other family members in the patient's life at this time. The patient does have two sisters who are estranged from the patient. Diann reports having little to no social support. She states that she and her mom are "best friends" and relied on each other for support. Diann also reports feeling guilt and/or responsibility for her mother's medical condition. Support was provided. Diann is understandably overwhelmed and upset regarding her mother's condition. She is very tearful. Pastoral Care met with patient. Provided additional reassurance to patient, also gave her a meal ticket and beverage. Per chart review there is also concern regarding the patient's home environment (possibly hoarding). Due to Diann's emotional distress, did not address these concerns with her at this time. Case management will follow.
--- NOTE | 2017-08-24 14:11 | Cardiology Consultation ---
Cardiology Consultation Date of Consultation: Aug 24, 2017. Requesting Physician: Dr. Alvarez Reason for Consultation: Cardiac arrest History of Present Illness This is an 82-year-old woman who was at home with her daughter when she became unresponsive on 08/23/2017. EMS was summoned, CPR was initiated and she was reported to be asystolic. En route she went into [facility]. Other medical history is unavailable. Electrocardiography in the emergency room on 08/23/2017 at 2245 shows an underlying sinus mechanism with a wide complex ventricular rhythm suggesting metabolic derangement. Another electrocardiogram done about 4 hours later shows sinus rhythm with QT prolongation and a borderline IVCD. The point of care troponin on arrival is minimally elevated. She was intubated and cooled using the articular protocol. Her left ventricular ejection fraction is in the 25-30% range, she has been rewarmed and remains unresponsive. I believe she is a level V DO NOT RESUSCITATE currently. She remains unresponsive. Social History Smoking Status: Never Smoker Allergies Coded Allergies: Ofloxacin (Verified Allergy, Unknown, RASH, 08/23/17) Uncoded Allergies: ERYTHROMYCIN BASE (Allergy, Unknown, unknown, 08/23/17) Medications Current Inpatient Medications Medications (Trade) Dose Ordered Sig/Srikanth Route Start Time Stop Time Status Last Admin Dose Admin Artificial Tears (Lacri-Lube Oph Oint) 1 appln Q2H PRN OPB 08/24/17 02:00 09/23/17 01:59 08/24/17 07:36 1 APPLN Pantoprazole Sodium 40 mg/ Syringe 10 ml @ 5 mls/min DAILY@11 IV 08/24/17 11:00 09/23/17 10:59 08/24/17 11:28 5 MLS/MIN Norepinephrine Bitartrate 8 mg/ Dextrose 508 ml @ 0 mls/hr Q0M PRN IV 08/24/17 01:46 09/23/17 01:45 Insulin Aspart (novoLOG ASPART) SLIDING SCALE [facility] 08/24/17 08:00 09/23/17 07:59 Future Hold Insulin Human Regular 250 units/ Sodium Chloride 252.5 ml @ 0 mls/hr Q24H IV 08/24/17 05:30 09/23/17 05:29 Future Hold Fentanyl Citrate (Fentanyl Inj) 25 mcg Q1H PRN IV 08/24/17 09:15 09/07/17 09:14 08/24/17 12:56 25 MCG Levetiracetam 1000 mg/Dextrose 110 ml @ 420 mls/hr Q12 IV 08/24/17 21:00 09/23/17 20:59 Potassium Phosphate 24 mmol/ Sodium Chloride 508 ml @ 145.143 mls/hr TODAY@1300 ONCE IV 08/24/17 13:00 08/24/17 16:29 08/24/17 12:56 145.143 MLS/HR Physical Exam Vital Signs Past 12 Hours Date Time Temp Pulse Resp B/P (MAP) Pulse Ox O2 Delivery O2 Flow Rate FiO2 08/24/17 13:00 34.2 82 21 156/90 (112) 100 Mechanical Ventilator 30.0 30 08/24/17 13:00 34.2 82 21 156/90 (112) 100 Mechanical Ventilator 30 08/24/17 12:00 34.7 81 26 145/77 (99) 100 Mechanical Ventilator 30 08/24/17 12:00 34.7 81 26 145/77 (99) 100 Mechanical Ventilator 30 08/24/17 11:37 30 08/24/17 11:00 34.8 78 22 143/73 (96) 100 Mechanical Ventilator 30 08/24/17 11:00 34.8 78 22 143/73 (96) 100 Mechanical Ventilator 30 08/24/17 10:00 34.6 75 25 130/72 (91) 100 Mechanical Ventilator 08/24/17 10:00 34.6 75 25 130/72 (91) 100 Mechanical Ventilator 30 08/24/17 09:00 34.0 68 23 124/69 (87) 100 Mechanical Ventilator 08/24/17 09:00 34.0 68 23 124/69 (87) 100 Mechanical Ventilator 30 08/24/17 08:00 34.0 68 23 124/69 (87) 100 Mechanical Ventilator 08/24/17 08:00 33.8 68 22 112/80 (91) 100 Mechanical Ventilator 30 08/24/17 08:00 30 08/24/17 08:00 Mechanical Ventilator 30 08/24/17 07:15 30 08/24/17 07:15 33.7 76 23 123/80 (94) 100 Mechanical Ventilator 30.0 08/24/17 07:00 33.7 76 23 123/80 (94) 100 Mechanical Ventilator 08/24/17 06:00 33.6 72 19 115/65 100 08/24/17 06:00 33.6 72 19 100 08/24/17 06:00 33.6 72 19 08/24/17 05:20 30 08/24/17 05:00 33.0 71 19 117/65 (82) 100 Mechanical Ventilator 30 08/24/17 05:00 33.0 71 19 117/65 (84) 100 08/24/17 05:00 33.0 71 19 08/24/17 04:00 31.9 68 17 100 08/24/17 04:00 31.9 68 17 117/57 (77) 100 Mechanical Ventilator 30 08/24/17 04:00 31.9 68 17 117/57 (77) 100 Mechanical Ventilator 30 08/24/17 04:00 100 Mechanical Ventilator 30 08/24/17 04:00 30 08/24/17 03:11 31.4 63 16 121/58 (69) 100 08/24/17 03:01 31.3 64 16 125/59 (76) 100 08/24/17 03:00 31.3 62 16 100 08/24/17 03:00 31.3 62 16 125/59 (81) 100 Mechanical Ventilator 30 08/24/17 02:41 31.3 64 17 125/57 (87) 100 08/24/17 02:39 31.3 63 17 124/62 (87) 100 08/24/17 02:21 31.4 61 17 110/56 (89) 100 Data Laboratory Results: Last 24 Hours Test 08/23/17 22:45 08/23/17 22:47 08/23/17 22:55 08/23/17 22:58 White Blood Count 19.60 K/uL Red Blood Count 2.91 M/uL Hemoglobin 8.4 g/dL Hematocrit 27.4 % Mean Corpuscular Volume 94.2 fL Mean Corpuscular Hemoglobin 28.9 pg Mean Corpuscular Hemoglobin Concent 30.7 g/dl Platelet Count 152 K/uL Mean Platelet Volume 9.9 fL RDW Standard Deviation 53.9 fL RDW Coefficient of Variation 15.7 % Nucleated RBC Absolute Count (auto) 0.09 K/uL Nucleated Red Blood Cells % 0.4 % Platelet Estimate NORMAL Hypochromasia PRESENT Basophilic Stippling OCCASIONAL Echinocytes 1+ Prothrombin Time 12.9 SECONDS Prothromb Time International Ratio 1.2 Activated Partial Thromboplast Time 102.1 SECONDS Partial Thromboplastin Ratio 3.9 Sodium Level 148 mmol/L Potassium Level 1.9 mmol/L Chloride Level 124 mmol/L Carbon Dioxide Level 8 mmol/L Anion Gap 17.0 mmol/L Blood Urea Nitrogen 30 mg/dl Creatinine 2.22 mg/dl Estimated GFR () 23.5 Estimated GFR (Non- 20.3 BUN/Creatinine Ratio 13.3 Random Glucose 310 mg/dl Calcium Level 7.5 mg/dl Total Bilirubin 0.1 mg/dl Direct Bilirubin < 0.1 mg/dl Aspartate Amino Transf (AST/SGOT) 61 U/L Alanine Aminotransferase (ALT/SGPT) 34 U/L Alkaline Phosphatase 56 U/L Total Creatine Kinase 63 U/L Creatine Kinase MB 2.5 ng/ml Creatine Kinase MB Ratio 4.0 Total Protein 4.7 gm/dl Albumin 2.1 gm/dl Beta-Hydroxybutyric Acid 1.34 mg/dL Bedside Blood Gas pH (LAB) 6.74 Bedside Blood Gas pCO2 (LAB) 43 mmHg Bedside Blood Gas pO2 (LAB) > 420 mmHg Bedside Blood Gas HCO3 (LAB) 6 meq/L Bedside Blood Gas Total CO2 7 mEq/l Bedside Blood Gas Base Excess (LAB) -30.0 meq/L Bedside Blood Gas O2 Saturation 100.0 % Bedside Lactic Acid Venous 7.17 mmol/L Bedside Troponin I 0.070 ng/ml Test 08/23/17 23:09 08/24/17 00:00 08/24/17 01:15 08/24/17 02:37 Arterial Blood pH 7.25 Arterial Blood Partial Pressure CO2 36 mmHg Arterial Blood Partial Pressure O2 265 mm/Hg Arterial Blood HCO3 15 mmol/L Arterial Blood Oxygen Saturation 99.7 % Arterial Blood Base Excess -10.9 mEq/L Arterial Blood Gas Delivery 50% Irineo Test POS Pass Lactic Acid Level 8.3 mmol/L 3.9 mmol/L Phosphorus Level 6.8 mg/dl Magnesium Level 2.2 mg/dl Urine Color YELLOW Urine Appearance CLOUDY Urine pH 6.5 Urine Specific [place] 1.013 Urine Protein 1+ Urine Glucose (UA) 1+ Urine Ketones NEG Urine Occult Blood 2+ Urine Nitrite NEG Urine Bilirubin NEG Urine Urobilinogen NEG Urine Leukocyte Esterase LARGE Urine WBC (Auto) >30 /hpf Urine RBC (Auto) >30 /hpf Urine Hyaline Casts (Auto) 1-5 /lpf Urine Epithelial Cells (Auto) 0-5 /lpf Urine Bacteria (Auto) NEG Urine Yeast (Auto) Sodium Level 148 mmol/L Potassium Level 1.6 mmol/L Chloride Level 121 mmol/L Carbon Dioxide Level 13 mmol/L Anion Gap 14.0 mmol/L Blood Urea Nitrogen 29 mg/dl Creatinine 2.38 mg/dl Est Creatinine Clear Calc Drug Dose 16.1 ml/min Estimated GFR () 21.6 Estimated GFR (Non- 18.6 BUN/Creatinine Ratio 12.3 Random Glucose 314 mg/dl Calcium Level 7.4 mg/dl Beta-Hydroxybutyric Acid 2.21 mg/dL Ethyl Alcohol mg/dL < 3.0 mg/dl Blood Gas Sample Site L Radial Bedside Blood Gas pH (LAB) 7.22 Bedside Blood Gas pCO2 (LAB) 26 mmHg Bedside Blood Gas pO2 (LAB) 138 mmHg Bedside Blood Gas HCO3 (LAB) 12 meq/L Bedside Blood Gas Total CO2 13 mEq/l Bedside Blood Gas Base Excess (LAB) -17.0 meq/L Bedside Blood Gas O2 Saturation 99.0 % Oxygen Delivery Device Ventilator Bedside Oxygen Rate (breaths/min) 12 Blood Gas Minute Ventilation 6 Bedside FiO2 40 % Blood Gas Tidal Volume 500 Blood Gas PEEP 5 Test 08/24/17 02:41 08/24/17 02:42 08/24/17 02:46 08/24/17 04:05 Estimated Average Glucose 91 mg/dl Hemoglobin A1c 4.8 % Osmolality 322 mOsm/kg Ionized Calcium 1.17 mmol/l Thyroid Stimulating Hormone (TSH) 4.870 uIu/ml Free Thyroxine 0.85 ng/dl Random Cortisol 48.49 mcg/dl Bedside Hemoglobin 10.9 g/dl Bedside Hematocrit 32 % Bedside Sodium 144 mEq/L Bedside Potassium < 2.0 mEq/L Bedside Chloride 118 mEq/L Bedside Total CO2 15 mEq/l Anion Gap mmol/L Bedside Blood Urea Nitrogen 29 mg/dl Bedside Creatinine 2.2 mg/dl Bedside Glucose (other) 408 mg/dl Bedside Ionized Calcium (Chris) 1.24 mmol/l Urine Opiates Screen NEG Urine Methadone, Qualitative NEG Urine Barbiturates NEG Urine Phencyclidine (PCP) Level NEG Ur Amphetamine/Methamphetamine NEG MDMA (Ecstasy) Screen NEG Urine Benzodiazepines Screen NEG Urine Cocaine Metabolite NEG Urine Marijuana (THC) NEG Blood Gas Sample Site L Radial Bedside Blood Gas pH (LAB) 7.24 Bedside Blood Gas pCO2 (LAB) 25 mmHg Bedside Blood Gas pO2 (LAB) 88 mmHg Bedside Blood Gas HCO3 (LAB) 11 meq/L Bedside Blood Gas Total CO2 12 mEq/l Bedside Blood Gas Base Excess (LAB) -17.0 meq/L Bedside Blood Gas O2 Saturation 97.0 % Irineo Test Pass Oxygen Delivery Device Ventilator Bedside Oxygen Rate (breaths/min) 12 Blood Gas Minute Ventilation 6 Bedside FiO2 30 % Blood Gas Tidal Volume 500 Blood Gas PEEP 5 Test 08/24/17 04:55 08/24/17 05:28 08/24/17 07:51 08/24/17 08:12 Bedside Glucose (other) 495 mg/dl 492 mg/dl 503 mg/dl Bedside Hemoglobin 9.9 g/dl Bedside Hematocrit 29 % Bedside Sodium 145 mEq/L Bedside Potassium < 2.0 mEq/L Bedside Chloride 113 mEq/L Bedside Total CO2 14 mEq/l Anion Gap mmol/L 14.0 mmol/L Bedside Blood Urea Nitrogen 29 mg/dl Bedside Creatinine 2.4 mg/dl Bedside Ionized Calcium (Chris) 1.17 mmol/l White Blood Count 17.28 K/uL Red Blood Count 3.48 M/uL Hemoglobin 10.1 g/dL Hematocrit 30.7 % Mean Corpuscular Volume 88.2 fL Mean Corpuscular Hemoglobin 29.0 pg Mean Corpuscular Hemoglobin Concent 32.9 g/dl Platelet Count 191 K/uL Mean Platelet Volume 9.9 fL Neutrophils (%) (Auto) 91.3 % Lymphocytes (%) (Auto) 4.9 % Monocytes (%) (Auto) 3.4 % Eosinophils (%) (Auto) 0.0 % Basophils (%) (Auto) 0.0 % Neutrophils # (Auto) 15.78 K/uL Lymphocytes # (Auto) 0.85 K/uL Monocytes # (Auto) 0.58 K/uL Eosinophils # (Auto) 0.00 K/uL Basophils # (Auto) 0.00 K/uL RDW Standard Deviation 49.5 fL RDW Coefficient of Variation 15.5 % Immature Granulocyte % (Auto) 0.4 % Immature Granulocyte # (Auto) 0.07 K/uL Nucleated RBC Absolute Count (auto) 0.02 K/uL Nucleated Red Blood Cells % 0.1 % Toxic Granulation 2+ Dohle Bodies 1+ Anisocytosis PRESENT Prothrombin Time 13.4 SECONDS Prothromb Time International Ratio 1.2 Activated Partial Thromboplast Time 44.9 SECONDS Partial Thromboplastin Ratio 1.7 Sodium Level 146 mmol/L Potassium Level 2.4 mmol/L Chloride Level 117 mmol/L Carbon Dioxide Level 15 mmol/L Blood Urea Nitrogen 34 mg/dl Creatinine 2.62 mg/dl Est Creatinine Clear Calc Drug Dose 13.5 ml/min Estimated GFR () 19.2 Estimated GFR (Non- 16.6 BUN/Creatinine Ratio 12.8 Random Glucose 486 mg/dl Calcium Level 7.4 mg/dl Phosphorus Level 1.9 mg/dl Magnesium Level 2.7 mg/dl Beta-Hydroxybutyric Acid 2.67 mg/dL Test 08/24/17 08:16 08/24/17 11:56 08/24/17 12:16 Blood Gas Sample Site R Radial L Radial Bedside Blood Gas pH (LAB) 7.28 7.20 Bedside Blood Gas pCO2 (LAB) 22 mmHg 23 mmHg Bedside Blood Gas pO2 (LAB) 124 mmHg 124 mmHg Bedside Blood Gas HCO3 (LAB) 10 meq/L 10 meq/L Bedside Blood Gas Total CO2 11 mEq/l 10 mEq/l Bedside Blood Gas Base Excess (LAB) -17.0 meq/L -19.0 meq/L Bedside Blood Gas O2 Saturation 99.0 % 98.0 % Irineo Test Pass Pass Oxygen Delivery Device Ventilator Ventilator Bedside Oxygen Rate (breaths/min) 12 12 Blood Gas Minute Ventilation 12.6 17.8 Bedside FiO2 30 % 30 % Blood Gas Tidal Volume 500 500 Blood Gas PEEP 5 5 White Blood Count 16.40 K/uL Red Blood Count 3.81 M/uL Hemoglobin 10.8 g/dL Hematocrit 33.2 % Mean Corpuscular Volume 87.1 fL Mean Corpuscular Hemoglobin 28.3 pg Mean Corpuscular Hemoglobin Concent 32.5 g/dl Platelet Count 215 K/uL Mean Platelet Volume 9.8 fL Neutrophils (%) (Auto) 91.7 % Lymphocytes (%) (Auto) 4.1 % Monocytes (%) (Auto) 3.6 % Eosinophils (%) (Auto) 0.1 % Basophils (%) (Auto) 0.1 % Neutrophils # (Auto) 15.05 K/uL Lymphocytes # (Auto) 0.67 K/uL Monocytes # (Auto) 0.59 K/uL Eosinophils # (Auto) 0.01 K/uL Basophils # (Auto) 0.01 K/uL RDW Standard Deviation 48.7 fL RDW Coefficient of Variation 15.3 % Immature Granulocyte % (Auto) 0.4 % Immature Granulocyte # (Auto) 0.07 K/uL Hypersegmented Polys 1+ Anisocytosis PRESENT Echinocytes 1+ Prothrombin Time 13.4 SECONDS Prothromb Time International Ratio 1.2 Activated Partial Thromboplast Time 41.7 SECONDS Partial Thromboplastin Ratio 1.6 Sodium Level 148 mmol/L Potassium Level 2.5 mmol/L Chloride Level 120 mmol/L Carbon Dioxide Level 13 mmol/L Anion Gap 14.0 mmol/L Blood Urea Nitrogen 39 mg/dl Creatinine 2.69 mg/dl Est Creatinine Clear Calc Drug Dose 13.2 ml/min Estimated GFR () 18.6 Estimated GFR (Non- 16.1 BUN/Creatinine Ratio 14.3 Random Glucose 405 mg/dl Calcium Level 7.4 mg/dl Phosphorus Level 1.9 mg/dl Magnesium Level 2.5 mg/dl Total Bilirubin 0.3 mg/dl Direct Bilirubin 0.1 mg/dl Aspartate Amino Transf (AST/SGOT) 133 U/L Alanine Aminotransferase (ALT/SGPT) 58 U/L Alkaline Phosphatase 77 U/L Total Protein 6.1 gm/dl Albumin 2.6 gm/dl Beta-Hydroxybutyric Acid 1.50 mg/dL Imaging: EKG: Telemetry reviewed: Since shortly after the emergency room visit sinus rhythm with intact AV conduction. Assessment & Plan #1. Out of hospital arrest: The cause is unclear, it is reported that she was asystolic. Suggests a secondary cause as her rhythm has been stable currently. I will continue to follow from a distance in case any cardiovascular intervention is required. Thank you for allowing me to participate in her care.
--- NOTE | 2017-08-24 14:51 | NUR ---
DIABETES Pt identified for BG > 300mg/dl. No hx of diabetes or use of diabetes medications prior to admit noted. A1c 4.8%- interpret with caution. Accucheck ordered per protocol. Given severe hyperglycemia, insulin drip is recommended; however, same is being held at this time d/t severe hypokalemia. Bolus insulin doses are being given prn.
[2017-08-24] MEDS ORDERED: MoRPHine SULFATE 1 MG/ML 50 ML PCA CASS IV PRN (15:15)
[2017-08-24] MEDS ORDERED: NALOXONE HCL 0.4 MG/1 ML VIAL/CARP IV PRN (15:30)
[2017-08-24] MEDS ORDERED: SODIUM CHLORIDE 0.9% 1000ML 1,000 ML IV SCH (15:30)
--- NOTE | 2017-08-24 15:43 | EEG Procedure Note ---
EEG Procedure Note Date of Service Aug 24, 2017. Start / End Times Start Time: 08/24/2017 at 8:34 AM End Time: 08/24/2017 at 15:[address] Alvarez History This is a 82-year-old female who presented with cardiac arrest and post anoxic myoclonus. Continuous video EEG as part of hypothermia protocol and for further evaluation of myoclonus and seizure. Home Medication List Scheduled Fluoxetine (Prozac), 20 MG PO QAM Quetiapine Fumarate (Seroquel), 50 MG PO HS Simvastatin (Zocor), 10 MG PO QPM Trazodone Hcl (Trazodone), 50 MG PO HS Scheduled PRN Ibuprofen (Motrin), 600 MG PO Q8 PRN for arthritic pain Inpatient Medication List Current Inpatient Medications Medications (Trade) Dose Ordered Sig/Srikanth Route Start Time Stop Time Status Last Admin Dose Admin Artificial Tears (Lacri-Lube Oph Oint) 1 appln Q2H PRN OPB 08/24/17 02:00 09/23/17 01:59 08/24/17 07:36 1 APPLN Pantoprazole Sodium 40 mg/ Syringe 10 ml @ 5 mls/min DAILY@11 IV 08/24/17 11:00 09/23/17 10:59 08/24/17 11:28 5 MLS/MIN Norepinephrine Bitartrate 8 mg/ Dextrose 508 ml @ 0 mls/hr Q0M PRN IV 08/24/17 01:46 09/23/17 01:45 Insulin Aspart (novoLOG ASPART) SLIDING SCALE [facility] 08/24/17 08:00 09/23/17 07:59 Future Hold Insulin Human Regular 250 units/ Sodium Chloride 252.5 ml @ 0 mls/hr Q24H IV 08/24/17 05:30 09/23/17 05:29 Future Hold Fentanyl Citrate (Fentanyl Inj) 25 mcg Q1H PRN IV 08/24/17 09:15 09/07/17 09:14 08/24/17 12:56 25 MCG Levetiracetam 1000 mg/Dextrose 110 ml @ 420 mls/hr Q12 IV 08/24/17 21:00 09/23/17 20:59 Potassium Phosphate 24 mmol/ Sodium Chloride 508 ml @ 145.143 mls/hr TODAY@1300 ONCE IV 08/24/17 13:00 08/24/17 16:29 08/24/17 12:56 145.143 MLS/HR Morphine Sulfate (moRPHine SULFATE TIGHT COOPER) 50 mg PRN PRN IV 08/24/17 15:15 09/07/17 15:14 Naloxone HCl (Narcan Inj) 0.1 mg Q5M PRN IV 08/24/17 15:30 09/07/17 15:29 Sodium Chloride 1,000 ml @ 15 mls/hr Q24H IV 08/24/17 15:30 09/23/17 15:29 Miscellaneous Information (Nursing Verbal Med Order) 1 ea ONE ONCE N/A 08/24/17 15:30 08/24/17 15:31 UNV Description This is a 21 electrode continuous video EEG with a single channel dedicated to limited EKG. The electrodes were placed in accordance with the International 10- 20 system. Post processing with an event detection algorithm is applied to the continuous data collection for the purpose of identifying abnormal epochs. These detections are reviewed and all candidate seizures are processed for further analysis. Data is reviewed in its raw format and patient events are processed, edited and stored. At the start of this recording the patient was in the ICU, intubated, and unresponsive. There was no background organization. Background was diffusely suppressed with rare low amplitude delta and theta frequencies. There is no clear reactivity. Intermittently there was high amplitude generalized frontal predominant theta frequency spike waves with diffuse muscle artifact lasting less than 1 second. There did appear to be cerebral spike activity proceeding clinical eye opening and myoclonic movement on video. There was no state changes or sleep transients. Interpretation This is an abnormal continuous video EEG secondary to: 1) occasional intermittent generalized burst of high amplitude spike activity lasting less than 1 second that precedes eye opening and myoclonic movement. 2) diffuse background suppression Clinical Correlation This EEG indicates: 1) cerebral myoclonic activity. This is likely consistent with anoxic brain injury. 2) severe diffuse encephalopathy of nonspecific etiology. Cooling protocol and sedating medications could contribute to encephalopathy. Cerebral myoclonic activity was reviewed with neurology clinical application consultant Dr. Madden
--- NOTE | 2017-08-24 16:00 | NUR ---
A: PT PLACED ON MORPHINE GTT. RT IN ROOM TO DC CONT. EEG MONITORING PER . DAUGHTER AT BEDSIDE. FAMILY FRIENDS NOTIFIED AND ARE IN ROUTE TO HOSPITAL. CLERGY AT BEDSIDE TO PROVIDE SUPPORT.
[2017-08-24] MEDS: MORPHINE SULF/NSS 250MG/250ML IV PRN (16:18)
--- NOTE | 2017-08-24 17:00 | NUR ---
A: PT EXTUBATED BY RT PER . MORPHINE GTT INCREASED FOR COMFORT. DAUGHTER AT BEDSIDE. CALL PLACED TO [facility]REFERR[facility] HOME R/T DAUGHTERS CONCERN OF INABILITY TO PAY FOR SERVICES. INFORMATION PASSED ON TO [place]. FRIENDS AT BEDSIDE FOR SUPPORT.
--- NOTE | 2017-08-24 18:00 | NUR ---
A: PT IS IN NO DISTRESS. DAUGHTER REMAINS AT BEDSIDE.
--- NOTE | 2017-08-24 20:00 | NUR ---
a: assessment completed, no changes noted from prev shift verbal report. unresponsive. lungs coarse, spo2 lo 90s on 2lpm o2 nc. no cough elicited with oral care/suctioning. SR. morphine gtt for comfort/pain control. freq turn/repos, oral care. appears comfortable. dgtr and neighbor at bedside. see emr further detail.
[2017-08-24] MEDS: LEVETIRACETAM IV 1,000 MG in DEXTROSE 5% 100ML 100 ML IV SCH (21:10)
--- NOTE | 2017-08-24 22:00 | NUR ---
a: routine care completed. temp drifting slowly, 34.1 pr. hr now 60s. occasional agonal breaths interspersed with shallow resps. u/o improved 225 cc for 8h. dgtr bedside, support offered.
[2017-08-25] VITALS (9 sets, daily range): BP systolic 82–92; BP diastolic 42–48; PULSE 63–75; TEMP 33.1–33.8; O2SAT 67–95
--- NOTE | 2017-08-25 | NUR ---
a: reassessed as charted, no changes. temp continues downward drift despite warm blankets, now 33.8 LA. HR 60s. unresponsive. appears comfortable. morphine gtt maintained. routine care completed. dgtr remains bedside.
--- NOTE | 2017-08-25 02:00 | NUR ---
a: routine care. vss. no changes.
[2017-08-25] MEDS: MORPHINE SULF/NSS 250MG/250ML IV PRN (03:54)
--- NOTE | 2017-08-25 04:00 | NUR ---
a: reassessed, no changes. routine care completed. vss. appears comfortable, morphine gtt unchanged at 20 cc/h.
--- NOTE | 2017-08-25 05:39 | NUR ---
a: chg bath/skin care/linen change. no response to stimuli. feet mottled/cool, pulses weak. o2 flow turned up to 4lpm, spo2 remains hi 80s with irregular respns.
--- NOTE | 2017-08-25 08:00 | NUR ---
a/id: pt assessment completed at this time. pt is unresponsive and does not respond to painful stimuli. pt is DNR/DNI and is on comfort measures. IV intact - morphine gtt infusing per order. SR on monitor. SBP 90's. on 3L NC. repositioned. oral care completed. José Chu PA-C at bedside speaking with daughter. a recliner chair, water and meal ticket provided for daughter. SCd's on. call light within reach. will continue to monitor.
--- NOTE | 2017-08-25 08:14 | Clinical Documentation Query ---
CLINICAL DOCUMENTATION QUERY QUERY 1 OF 4 82 yo female admitted for full cardiac arrest and on mechanical ventilation In your clinical opinion is this patient being managed for: ( x ) Acute respiratory failure with hypoxia ( ) Not Agree ( ) Other explanation of clinical findings (Please Explain) ( ) Unable to determine (Please Define) ( ) Need to Discuss The medical record reflects the following clinical findings, treatment, and risk factors. Clinical Indicators: Cardiac arrest, anoxic myoclonus, unresponsive Treatment: CPR, intubation and mechanical ventilation, ICU, ABGs Risk Factors: Cardiac arrest, CVA QUERY 2 OF 4 In your clinical opinion is this patient being managed for: (x ) Acute systolic CHF ( ) Not Agree ( ) Other explanation of clinical findings (Please Explain) ( ) Unable to determine (Please Define) ( ) Need to Discuss The medical record reflects the following clinical findings, treatment, and risk factors. Clinical Indicators: Chest CT demonstrates pulmonary arterial HTN with mild congestive failure, echo demonstrates left ventricular systolic function severely reduced and EF=25-30%, crackles in lung soliman Treatment: I&O, echo, chest CT Risk Factors: Cardiac arrest, mechanical ventilation QUERY 3 OF 4 In your clinical opinion is this patient being managed for: ( x ) Metabolic encephalopathy ( ) Not Agree ( ) Other explanation of clinical findings (Please Explain) ( ) Unable to determine (Please Define) ( ) Need to Discuss The medical record reflects the following clinical findings, treatment, and risk factors. Clinical Indicators: EEG indicates anoxic brain injury and severe diffuse encephalopathy Treatment: Mechanical ventilation, ICU monitoring, EEG, neurology consult Risk Factors: Cardiac arrest, CVA QUERY 4 OF 4 In your clinical opinion is this patient being managed for: ( x ) Multiple fractures of ribs, bilateral in the setting of post CPR ( ) Not Agree ( ) Other explanation of clinical findings (Please Explain) ( ) Unable to determine (Please Define) ( ) Need to Discuss The medical record reflects the following clinical findings, treatment, and risk factors. Clinical Indicators: Multiple bilateral rib fractures present on chest x-ray Treatment: Mechanical ventilation Risk Factors: Cardiac arrest, CPR Please clarify and document your clinical opinion in the progress notes and discharge summary. Terms such as "probable", "suspected", "likely", "questionable", "possible", or "still to be ruled out" are acceptable. IF IN AGREEMENT, YOU MUST DOCUMENT ABOVE DIAGNOSTIC STATEMENT IN DAILY PROGRESS NOTES AND DISCHARGE SUMMARY. This document is not part of the patient's record. Thank You, Sofie Jeter RN [phone]
--- NOTE | 2017-08-25 08:54 | NUR ---
Case Management: Patient has been extubated, is on comfort measures. Followed up with patient's daughter Diann at bedside. Support provided to Diann, she does verbalize understanding of her mother's prognosis. She has been meeting with Pastoral Care which she finds helpful. Discussed option of inpatient hospice to support her and patient, as well as to connect her with additional resources. Patient's daughter grants permission for referral to be placed - agency choice provided however Diann is not familiar with any hospice agencies. With permission, referral placed to [facility] after speaking with insurance verification representative and learning that they could accommodate an urgent referral. [facility] also able to provide bereavement support for the patient's daughter for over one year. Script ordering GIP obtained from Dr. Alcaraz and faxed to [facility] - await determination, and if accepted, time when hospice nurse can meet with patient's daughter at bedside. Also asked Diann about her support system. She does report having a good friend named Shelby Guardado (ph: [phone]) who she met through [employer]. Diann asks casework manager to call Shelby with an update on her mother - did speak with Shelby and provide brief update. Shelby states that she is able to assist Diann with transportation, arrangements, etc. Diann also states that her upstairs neighbors Luz Maria and Oli (ph: [phone]) are supportive and have been assisting her with transportation. wireless store manager did meet Luz Maria and Oli at patient's bedside on 08/24, and they did confirm that they can be contacted to assist if needed. Case management will continue to follow. Addendum: 08/25/17 at 1217 by Tiffany Paul SERV [facility] nurse meeting with patient at bedside. Addendum: 08/25/17 at 1648 by Tiffany Paul SERV Patient at 1410 - notified [facility] of time of . They will follow up with patient's daughter Diann regarding bereavement and other assistance that she may require. Addendum: 08/28/17 at 0933 by Tiffany Paul SERV Note: After patient's passing, received notification from [facility] that patient had been formally admitted as GIP. Unfortunately, due to time patient passed, was unable to d/c patient and readmit under hospice benefit.
--- NOTE | 2017-08-25 09:15 | NUR ---
palliative care MD at bedside.
--- NOTE | 2017-08-25 09:18 | NUR ---
Pastoral Care, ICU, follow up visit with pt's daughter, Diann. Provided spiritual and emotional support, assured her of my continuing availability and prayers on the pt's behalf, will follow.
--- NOTE | 2017-08-25 09:58 | Critical Care Progress Note ---
Critical Care Progress Note Date of Service Aug 25, 2017. ICU Day ICU Day Number: [address] Bar Subjective Patient not alert and non responsive. Unable to attain ROS. Objective General - Unresponsive Eyes - Pupils pinpoint, unreactive. No icterus, gaze conjugate ENT - Lips, buccal mucosa, and tongue normal and mucous membranes are dry Neck - Supple, trachea midline Lungs - No paradoxical chest wall movement, coarse to auscultation bilaterally, no wheezes, rales, or rhonchi Heart - RRR, No murmurs, rubs, clicks, or gallops appreciated Abdomen - Soft, not distended, BS diminished, no organomegaly Extremities - Calves supple, no edema, peripheral pulses palpable Neuro - Cesar Coma Scale 3. No facial asymmetry, no unilateral neuro changes noted. No longer exhibiting intermittent myoclonic jerking of the arms, legs, and facial musculature. No abnormal posturing appreciated. Unable to test for strength. Reflexes absent Skin: Mottling appreciated in lower extremities Current SOFA Score SOFA Score Response (Comments) Value Platelets (x10) > 150 0 Bilirubin (mg/dL) < 1.2 0 Cesar Coma Score < 6 4 Level of Hypotension MAP less than 70 1 Creatinine (mg/dL) 2.0 - 3.4 2 Total 7 Assessment & Plan Reason Critically Ill: Patient is an 82-year-old female who is transferred to the ICU s/p cardiac arrest with ROSC without normal neurologic function. PLAN: Initiate comfort care measures: - Morphine drip - currently at 20ml/hr - Fentanyl 25mcg q1h PRN distress - Continue IV Keppra 1000mg q12h - to prevent seizing and myoclonic jerks Palliative care consulted Case management on board to look into hospice services Cmm Technician in to speak with daughter Resident Physician Supervision Note: I was present with Dr. Urena during the history and exam. I discussed the case with the resident and agree with the findings and plan as documented in the note. Any exceptions or clarifications are listed here: [None] Documented By: Isaiah Bar Consults & Procedures Consultants: Cardiology Palliative care Procedures: Intubation 08/23 Extubation 08/24 Data Medications: Current Inpatient Medications Medications (Trade) Dose Ordered Sig/Srikanth Route Start Time Stop Time Status Last Admin Dose Admin Artificial Tears (Lacri-Lube Oph Oint) 1 appln Q2H PRN OPB 08/24/17 02:00 09/23/17 01:59 08/24/17 07:36 1 APPLN Fentanyl Citrate (Fentanyl Inj) 25 mcg Q1H PRN IV 08/24/17 09:15 09/07/17 09:14 08/24/17 12:56 25 MCG Levetiracetam 1000 mg/Dextrose 110 ml @ 420 mls/hr Q12 IV 08/24/17 21:00 09/23/17 20:59 08/24/17 21:10 420 MLS/HR Morphine Sulfate/ Dextrose 250 ml @ 0 mls/hr Q0M PRN IV 08/24/17 15:45 09/07/17 15:44 08/25/17 03:54 20 MLS/HR Vital Signs: Date Time Temp Pulse Resp B/P (MAP) Pulse Ox O2 Delivery O2 Flow Rate FiO2 08/25/17 08:00 33.1 65 16 92/48 (63) 94 Nasal Cannula 3.0 08/25/17 08:00 95 Nasal Cannula 3.0 08/25/17 06:00 33.1 63 18 91/44 (60) 93 Nasal Cannula 3.0 08/25/17 04:00 33.3 65 18 84/44 (57) 90 Nasal Cannula 2.0 08/25/17 04:00 2.0 08/25/17 02:00 33.5 66 16 88/42 (57) 89 Nasal Cannula 2.0 08/25/17 00:00 2.0 08/25/17 00:00 33.8 66 14 89/43 (58) 91 Nasal Cannula 2.0 08/24/17 22:00 34.1 68 14 99/45 (63) 91 Nasal Cannula 2.0 08/24/17 20:00 34.8 72 14 104/50 (68) 91 Nasal Cannula 2.0 08/24/17 20:00 2.0 08/24/17 18:00 35.1 75 12 104/55 (71) Room Air 2.0 08/24/17 16:00 35.0 76 23 142/64 (90) 100 Mechanical Ventilator 30 08/24/17 16:00 Mechanical Ventilator 30 08/24/17 16:00 30 08/24/17 14:25 30 08/24/17 14:00 34.4 88 23 162/85 (110) 100 Mechanical Ventilator 30 08/24/17 13:00 34.2 82 21 156/90 (112) 100 Mechanical Ventilator 30.0 30 08/24/17 13:00 34.2 82 21 156/90 (112) 100 Mechanical Ventilator 30 08/24/17 12:00 30 08/24/17 12:00 Mechanical Ventilator 30 08/24/17 12:00 34.7 81 26 145/77 (99) 100 Mechanical Ventilator 30 08/24/17 12:00 34.7 81 26 145/77 (99) 100 Mechanical Ventilator 30 08/24/17 11:37 30 08/24/17 11:00 34.8 78 22 143/73 (96) 100 Mechanical Ventilator 30 08/24/17 11:00 34.8 78 22 143/73 (96) 100 Mechanical Ventilator 30 08/24/17 10:00 34.6 75 25 130/72 (91) 100 Mechanical Ventilator 08/24/17 10:00 34.6 75 25 130/72 (91) 100 Mechanical Ventilator 30 Laboratory Results: Last 24 Hours Test 08/24/17 11:56 08/24/17 12:01 08/24/17 12:16 White Blood Count 16.40 K/uL Red Blood Count 3.81 M/uL Hemoglobin 10.8 g/dL Hematocrit 33.2 % Mean Corpuscular Volume 87.1 fL Mean Corpuscular Hemoglobin 28.3 pg Mean Corpuscular Hemoglobin Concent 32.5 g/dl Platelet Count 215 K/uL Mean Platelet Volume 9.8 fL Neutrophils (%) (Auto) 91.7 % Lymphocytes (%) (Auto) 4.1 % Monocytes (%) (Auto) 3.6 % Eosinophils (%) (Auto) 0.1 % Basophils (%) (Auto) 0.1 % Neutrophils # (Auto) 15.05 K/uL Lymphocytes # (Auto) 0.67 K/uL Monocytes # (Auto) 0.59 K/uL Eosinophils # (Auto) 0.01 K/uL Basophils # (Auto) 0.01 K/uL RDW Standard Deviation 48.7 fL RDW Coefficient of Variation 15.3 % Immature Granulocyte % (Auto) 0.4 % Immature Granulocyte # (Auto) 0.07 K/uL Hypersegmented Polys 1+ Anisocytosis PRESENT Echinocytes 1+ Prothrombin Time 13.4 SECONDS Prothromb Time International Ratio 1.2 Activated Partial Thromboplast Time 41.7 SECONDS Partial Thromboplastin Ratio 1.6 Sodium Level 148 mmol/L Potassium Level 2.5 mmol/L Chloride Level 120 mmol/L Carbon Dioxide Level 13 mmol/L Anion Gap 14.0 mmol/L Blood Urea Nitrogen 39 mg/dl Creatinine 2.69 mg/dl Est Creatinine Clear Calc Drug Dose 13.2 ml/min Estimated GFR () 18.6 Estimated GFR (Non- 16.1 BUN/Creatinine Ratio 14.3 Random Glucose 405 mg/dl Calcium Level 7.4 mg/dl Phosphorus Level 1.9 mg/dl Magnesium Level 2.5 mg/dl Total Bilirubin 0.3 mg/dl Direct Bilirubin 0.1 mg/dl Aspartate Amino Transf (AST/SGOT) 133 U/L Alanine Aminotransferase (ALT/SGPT) 58 U/L Alkaline Phosphatase 77 U/L Total Protein 6.1 gm/dl Albumin 2.6 gm/dl Beta-Hydroxybutyric Acid 1.50 mg/dL Bedside Glucose 401 mg/dl Blood Gas Sample Site L Radial Bedside Blood Gas pH (LAB) 7.20 Bedside Blood Gas pCO2 (LAB) 23 mmHg Bedside Blood Gas pO2 (LAB) 124 mmHg Bedside Blood Gas HCO3 (LAB) 10 meq/L Bedside Blood Gas Total CO2 10 mEq/l Bedside Blood Gas Base Excess (LAB) -19.0 meq/L Bedside Blood Gas O2 Saturation 98.0 % Irineo Test Pass Oxygen Delivery Device Ventilator Bedside Oxygen Rate (breaths/min) 12 Blood Gas Minute Ventilation 17.8 Bedside FiO2 30 % Blood Gas Tidal Volume 500 Blood Gas PEEP 5 Resident Tracking Resident Involvement: Resident Care Provided Care Provided: Adult Hospital Medicine
--- NOTE | 2017-08-25 10:00 | NUR ---
pt remains unchanged - daughter at bedside. morphine gtt continues to infuse. SR on monitor. SBP 80's.
[2017-08-25] MEDS: LEVETIRACETAM IV 1,000 MG in DEXTROSE 5% 100ML 100 ML IV SCH ×2 (10:14→11:10)
--- NOTE | 2017-08-25 10:51 | Palliative Care Consultation ---
Consultation Date of Consultation: Aug 25, 2017. Requesting Physician: Yosvany Attending Physician: Yosvany Reason for Consultation: support for daughter - pt actively dying History of Present Illness Pt is an 82 yo female with PMH of HTN, HLD, GERD, glaucoma,arthritis and insomnia who had not been feeling "right" for a few days. Pt requested something to eat and drink and daughter wnet to the kitchen and was out of the room for approx 5 min and when she returned pt was unresponsive. Daughter called 911 - pt was in PEA and resuscitated, she coded again and CPR was given. Pt was intubated and was placed on cooling protocol. Pt admitted to the ICU and extubated on 08/24 after temp was WNL. Pt has been unresponsive. Met with daughter at bedside and allowed daughter to give some life long history of pt and family. Daughter expressed guilt for not taking her mother to the doctor when she was not feeling well, that her low K+ may have been caught and treated and pt would not be " here". Past Medical/Surgical History Medical History: HTN, HLD, GERD, glaucoma, arthritis,insomnia Family History noncontributory Social History Smoking Status: Never Smoker Drug Use: none Marital Status: single, (daughter) Housing Status: lives with family (daughter - Diann) Occupation Status: retired Review of Systems Unable to obtain - pt unresponsive Allergies Coded Allergies: Ofloxacin (Verified Allergy, Unknown, RASH, 08/23/17) Uncoded Allergies: ERYTHROMYCIN BASE (Allergy, Unknown, unknown, 08/23/17) Medications Current Inpatient Medications Medications (Trade) Dose Ordered Sig/Srikanth Route Start Time Stop Time Status Last Admin Dose Admin Artificial Tears (Lacri-Lube Oph Oint) 1 appln Q2H PRN OPB 08/24/17 02:00 09/23/17 01:59 08/24/17 07:36 1 APPLN Fentanyl Citrate (Fentanyl Inj) 25 mcg Q1H PRN IV 08/24/17 09:15 09/07/17 09:14 08/24/17 12:56 25 MCG Levetiracetam 1000 mg/Dextrose 110 ml @ 420 mls/hr Q12 IV 08/24/17 21:00 09/23/17 20:59 08/24/17 21:10 420 MLS/HR Morphine Sulfate/ Dextrose 250 ml @ 0 mls/hr Q0M PRN IV 08/24/17 15:45 09/07/17 15:44 08/25/17 03:54 20 MLS/HR Physical Exam Date Time Temp Pulse Resp B/P (MAP) Pulse Ox O2 Delivery O2 Flow Rate FiO2 08/25/17 10:00 33.5 71 12 91/47 (62) 90 Nasal Cannula 3.0 08/25/17 08:00 33.1 65 16 92/48 (63) 94 Nasal Cannula 3.0 08/25/17 08:00 Nasal Cannula 08/25/17 08:00 95 Nasal Cannula 3.0 08/25/17 06:00 33.1 63 18 91/44 (60) 93 Nasal Cannula 3.0 08/25/17 04:00 33.3 65 18 84/44 (57) 90 Nasal Cannula 2.0 08/25/17 04:00 2.0 08/25/17 02:00 33.5 66 16 88/42 (57) 89 Nasal Cannula 2.0 08/25/17 00:00 2.0 08/25/17 00:00 33.8 66 14 89/43 (58) 91 Nasal Cannula 2.0 08/24/17 22:00 34.1 68 14 99/45 (63) 91 Nasal Cannula 2.0 08/24/17 20:00 34.8 72 14 104/50 (68) 91 Nasal Cannula 2.0 08/24/17 20:00 2.0 08/24/17 18:00 35.1 75 12 104/55 (71) Room Air 2.0 08/24/17 16:00 35.0 76 23 142/64 (90) 100 Mechanical Ventilator 30 08/24/17 16:00 Mechanical Ventilator 30 08/24/17 16:00 30 08/24/17 14:25 30 08/24/17 14:00 34.4 88 23 162/85 (110) 100 Mechanical Ventilator 30 08/24/17 13:00 34.2 82 21 156/90 (112) 100 Mechanical Ventilator 30.0 30 08/24/17 13:00 34.2 82 21 156/90 (112) 100 Mechanical Ventilator 30 08/24/17 12:00 30 08/24/17 12:00 Mechanical Ventilator 30 08/24/17 12:00 34.7 81 26 145/77 (99) 100 Mechanical Ventilator 30 08/24/17 12:00 34.7 81 26 145/77 (99) 100 Mechanical Ventilator 30 08/24/17 11:37 30 08/24/17 11:00 34.8 78 22 143/73 (96) 100 Mechanical Ventilator 30 08/24/17 11:00 34.8 78 22 143/73 (96) 100 Mechanical Ventilator 30 General Appearance: + pertinent finding (Pt appears comfortable, no facial grimace or tachycardia) Neck: + pertinent finding (hyperextended) Respiratory: no respiratory distress, no accessory muscle use, + decreased breath sounds Cardiovascular: regular rate, rhythm Abdomen: + pertinent finding (rare BS) Musculoskeletal: poor tone Neurologic/Psychiatric: + pertinent finding (unresponsive) Skin: + cyanosis, + mottled, + pertinent finding (feet cold, cool to above knees, hands cold to touch) Laboratory Results Last 24 Hours Test 08/24/17 11:56 08/24/17 12:01 08/24/17 12:16 White Blood Count 16.40 K/uL Red Blood Count 3.81 M/uL Hemoglobin 10.8 g/dL Hematocrit 33.2 % Mean Corpuscular Volume 87.1 fL Mean Corpuscular Hemoglobin 28.3 pg Mean Corpuscular Hemoglobin Concent 32.5 g/dl Platelet Count 215 K/uL Mean Platelet Volume 9.8 fL Neutrophils (%) (Auto) 91.7 % Lymphocytes (%) (Auto) 4.1 % Monocytes (%) (Auto) 3.6 % Eosinophils (%) (Auto) 0.1 % Basophils (%) (Auto) 0.1 % Neutrophils # (Auto) 15.05 K/uL Lymphocytes # (Auto) 0.67 K/uL Monocytes # (Auto) 0.59 K/uL Eosinophils # (Auto) 0.01 K/uL Basophils # (Auto) 0.01 K/uL RDW Standard Deviation 48.7 fL RDW Coefficient of Variation 15.3 % Immature Granulocyte % (Auto) 0.4 % Immature Granulocyte # (Auto) 0.07 K/uL Hypersegmented Polys 1+ Anisocytosis PRESENT Echinocytes 1+ Prothrombin Time 13.4 SECONDS Prothromb Time International Ratio 1.2 Activated Partial Thromboplast Time 41.7 SECONDS Partial Thromboplastin Ratio 1.6 Sodium Level 148 mmol/L Potassium Level 2.5 mmol/L Chloride Level 120 mmol/L Carbon Dioxide Level 13 mmol/L Anion Gap 14.0 mmol/L Blood Urea Nitrogen 39 mg/dl Creatinine 2.69 mg/dl Est Creatinine Clear Calc Drug Dose 13.2 ml/min Estimated GFR () 18.6 Estimated GFR (Non- 16.1 BUN/Creatinine Ratio 14.3 Random Glucose 405 mg/dl Calcium Level 7.4 mg/dl Phosphorus Level 1.9 mg/dl Magnesium Level 2.5 mg/dl Total Bilirubin 0.3 mg/dl Direct Bilirubin 0.1 mg/dl Aspartate Amino Transf (AST/SGOT) 133 U/L Alanine Aminotransferase (ALT/SGPT) 58 U/L Alkaline Phosphatase 77 U/L Total Protein 6.1 gm/dl Albumin 2.6 gm/dl Beta-Hydroxybutyric Acid 1.50 mg/dL Bedside Glucose 401 mg/dl Blood Gas Sample Site L Radial Bedside Blood Gas pH (LAB) 7.20 Bedside Blood Gas pCO2 (LAB) 23 mmHg Bedside Blood Gas pO2 (LAB) 124 mmHg Bedside Blood Gas HCO3 (LAB) 10 meq/L Bedside Blood Gas Total CO2 10 mEq/l Bedside Blood Gas Base Excess (LAB) -19.0 meq/L Bedside Blood Gas O2 Saturation 98.0 % Irineo Test Pass Oxygen Delivery Device Ventilator Bedside Oxygen Rate (breaths/min) 12 Blood Gas Minute Ventilation 17.8 Bedside FiO2 30 % Blood Gas Tidal Volume 500 Blood Gas PEEP 5 Assessment & Plan Palliative Performance Scale: 10 % (1) Cardiac arrest Status: Acute Assessment & Plan: s/p resuscitation - now on comfort care (2) Hypokalemia Status: Acute Assessment & Plan: K+ level corrected (3) Acute renal failure Status: Acute Assessment & Plan: IV fluids Pt is actively dying, daughter and pt very dependent on each other to the exclusion of others. Hospice referral made for bereavement services for pt's daughter. Encouraged pt to tell stories and had pt talk about plans to care for herself at the bedside so pt could hear. Towards the end of my visit , their neighbor was invited in and reviewed pertinent info so that he can help support pt's daughter. Total time 70 min with >50% of time spent couseling regarding EOL issues and providing support to daughter at bedside.
--- NOTE | 2017-08-25 11:05 | NUR ---
Hospice nurse at bedside.
--- NOTE | 2017-08-25 12:00 | NUR ---
a: pt assessment remains unchanged. unresponsive. technology intern remains at bedside. iv intact - morphine gtt infusing per order. shen patent - 15cc of urine since approx 0600. repositioned. oral care completed. daughter at bedside.
--- NOTE | 2017-08-25 14:25 | NUR ---
at 1400, pts o2 sat dropped to 54%, HR 25. Patient at 1410 - pronounced by Dr. Bar, ICU physician. Daughter, Diann, was aware and is on her way back to the hospital.
--- NOTE | 2017-08-25 14:45 | NUR ---
Daughter, Diann and Neighbors, Magda arrived to hospital. RN and Certified Alcohol And Drug Counselor assisted family to bedside.
--- NOTE | 2017-08-25 15:39 | NUR ---
Pastoral Care, follow up visit, pt . Provided grief support to pt's daughter and her friends as they arrived at bedside, prayed with them, at their request, and assured them of my continuing prayers on their behalf. Pt's daughter plans to use [facility] in [place].
--- NOTE | 2017-08-25 17:58 | NUR ---
patient taken to [facility] [place]
--- NOTE | 2017-08-25 18:14 | Discharge Summary ---
Discharge Summary Date of Service Aug 25, 2017. (Fabian Green M.D.) Discharge Summary Admission Date: Aug 24, 2017 at 00:33 Principal Diagnosis: Myocardial infarction (Fabian Green M.D.) Hospital Course 82 F presented to [facility] by ambulance after suffering TX. Resuscitation efforts took place in route to the hospital. Pt was intubated and remained unresponsive with non-reactive pupils. Glascow score of 3. Pt was found to have a potassium of 1.9. Pt was started on K, HCO3. 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 Patients, daughter arrived to the hospital in the late morning. Daughter changed her code status to DNR. Patient was thus extubated and comfort measures were initiated. Patient at 14:10 on 08/25/2017. Pallative was consulted in the morning of 08/25/2017 and bereavement and social service technician were provided to the daughter. Please see the following problem list for more details regarding hospital course ; 82 year old female s/p cardiac arrest x2 s/p Cardiac Arrest; - suspect secondary to hypokalemia and cardiac arrhythmia vs. CVA - Code Arctic as per ICU protocol - ICU admission and consult offline editor Acute systolic CHF Acute Resp Failure with hypoxia; Intubated on ventilator - managed by ICU Severe hypokalemia - suspect secondary to diarrheal illness while taking acetazolamide and lisinopril - stop acetazolamide and lisinopril - 40meq KCl ordered in ER - continue at rate of 20 meq/hr, BMP after finishes Lactic acidosis - secondary to lack of perfusion during cardiac arrest - currently receiving bicarb drip from ER, repeat ABG - trend lactic acid metabolic encephalopathy Hypotension/Shock/ - cortisol pending - Levophed managed by ICU - goal MAP >60 Acute/Subacute infarct - Focal area of decreased attenuation involving the mid and inferior right cerebellar hemisphere, 3.4 x 2.5 cm - GCS 3 - consult neurology Acute kidney injury - unknown baseline - trend Cr, currently receiving IVF Elevated WBC - likely stress from cardiac arrest, no source of infection identified on CT head, chest, abdomen, pelvis Diarrhea - FOB negative in ER - fecal management system in place Anemia - unknown baseline - FOB negative as above - trend Elevated APTT - no history of lupus known - trend, avoid VTE prophylaxis currently Elevated Glucose - stress related - avoid insulin given severe hypokalemia - trend Multiple Rib fractures, bilateral in the setting of Post CPR Total Time Spent: Less than 30 minutes This includes examination of the patient, discharge planning, medication reconciliation, and communication with other providers. (Fabian Green M.D.) Discharge Instructions Please refer to the electronic Patient Visit Report (Discharge Instructions) for additional information. (Fabian Green M.D.) Assessment/Plan Resident Physician Supervision Note: I was present with Dr. Green during the history and exam. I discussed the case with the resident and agree with the findings and plan as documented in the note. Any exceptions or clarifications are listed here. 82 y/o female who presented following multiple out of hospital arrests s/p hypothermia protocol s/p transition to comfort care, extubation Nonverbal and nonresponsive to light touch during examination. +ve accessory muscle use w/ agonal type breathing. Palliative care was consulted for hospice transition and supportive services for patient and family in the morning. During the course of the day, the patient 's cardiorespiratory status gradually worsened with concomitant increased morphine demand and arrested at 1410 the afternoon of the . (Roberto Alcaraz MD)
== END 2017-08-25 18:03 | disposition expired ==
LOC: EDBD 22:38 → C.EDB 22:41 → C.MSICU 08-24 00:33 → ENRESERV 08-24 00:50 → C.MSICU 08-24 01:54
PROVIDERS: ADMIT Internal Medicine; ATTEND Family Medicine
PROC: 5A1935Z Respiratory Ventilation, Less than 24 Consecutive Hours (ICD-10-PCS; principal; 2017-08-23)
PROC: 06HY33Z Insertion of Infusion Device into Lower Vein, Percutaneous Approach (ICD-10-PCS; principal; 2017-08-23)
DX: I21.4 Non-ST elevation (NSTEMI) myocardial infarction (principal); J96.01 Acute respiratory failure with hypoxia; I63.9 Cerebral infarction, unspecified; I50.21 Acute systolic (congestive) heart failure; G93.41 Metabolic encephalopathy; N17.9 Acute kidney failure, unspecified; E87.2 Acidosis; Z51.5 Encounter for palliative care; S22.43XA Multiple fractures of ribs, bilateral, initial encounter for closed fracture; R57.9 Shock, unspecified; E87.6 Hypokalemia; I46.8 Cardiac arrest due to other underlying condition; R19.7 Diarrhea, unspecified; D64.9 Anemia, unspecified; R73.9 Hyperglycemia, unspecified; R40.2430 Glasgow coma scale score 3-8, unspecified time; G25.3 Myoclonus; I11.0 Hypertensive heart disease with heart failure; E78.5 Hyperlipidemia, unspecified; K21.9 Gastro-esophageal reflux disease without esophagitis; G47.00 Insomnia, unspecified; H40.9 Unspecified glaucoma; M19.90 Unspecified osteoarthritis, unspecified site; Z79.899 Other long term (current) drug therapy; Z66 Do not resuscitate; X58.XXXA Exposure to other specified factors, initial encounter; Y99.8 Other external cause status